=== PATIENT | female | born 1950 | race Caucasian/White ===

== ENCOUNTER 2024-07-06 14:14 | Emergency (ER) | payer MEDICARE, OTHER, SELFPAY ==
--- NOTE | ~2024-07-06 | CT_ITS ---
EXAMINATION: CT ABDOMEN AND PELVIS WITHOUT CONTRAST CLINICAL INFORMATION: Left flank pain, vomiting. COMPARISON: None available. TECHNIQUE: Multidetector volumetric imaging was performed from the superior aspect of the liver through the pubic symphysis. Sagittal and coronal reformatted images were obtained on the technologist's workstation. This CT examination was performed using dose optimization techniques as appropriate, variously including the following: *Automated exposure control *Adjustment of mA and/or kV according to patient size (this includes techniques or standardized protocols for targeted exams where dose is matched to indication/reason for exam; i.e. extremities or head) *Use of iterative reconstruction technique DLP: 735 mGy-cm FINDINGS: LUNG BASES: The visualized lung bases are unremarkable. LIVER, GALLBLADDER, AND BILIARY TREE: The liver is normal in size, shape, and attenuation. No focal hepatic lesion or biliary ductal dilatation is present. The gallbladder is unremarkable with no evidence of radiopaque gallstones, gallbladder wall thickening, or obvious pericholecystic inflammatory changes. PANCREAS: Unremarkable. SPLEEN: Unremarkable. ADRENAL GLANDS: Unremarkable. KIDNEYS AND URETERS: The kidneys are normal in size, shape, and attenuation. There is a nonobstructive 5 mm radiopaque calculi lower pole calyx left kidney. There is a 5 mm and a 7 mm obstructive radiopaque left distal ureter calculi with moderate hydroureteronephrosis. Intermingled with several phleboliths in the left pelvis as well. No previous exams in level for comparison. No radiopaque calculus in right kidney. There is no hydronephrosis. BLADDER: Unremarkable. GASTROINTESTINAL TRACT: There is scattered stool and gas seen in colon without distention. The small bowel loops are normal caliber. ABDOMINAL WALL: No significant hernia is appreciated. LYMPH NODES: Normal. VASCULAR: Unremarkable. PELVIC VISCERA: The uterus is anteverted and unremarkable. No free air or free fluid seen no adnexal mass. OSSEOUS STRUCTURES: Mild degenerative disc changes L2-3, L3-4 and L4-5 disc levels with vacuum disc phenomena. There is grade 1 anterolisthesis L3 over L4. No lytic or sclerotic process seen. CT/CT abdomen pelvis wo IV con IMPRESSION: 1. Obstructive radiopaque calculi distal left ureter with moderate hydroureteronephrosis. There is a nonobstructive radiopaque calculi lower pole calyx left kidney. 2. Mild constipation. Fleischner guidelines were followed. Electronically signed by: Paul Bey MD 07/06/2024 07:44 PM EDT RP
[2024-07-06 14:49] VITALS: BP 138/84; PULSE 100; RESP 16; TEMP 36.6; O2SAT 95; BMI 33.7
--- NOTE | 2024-07-06 14:50 | ED.ABDPAIN ---
HPI - Abdominal Pain General Chief Complaint: Abdominal Pain Stated Complaint: l side pain Time Seen by Provider: 07/06/24 18:22 Source: patient Mode of arrival: ambulatory Limitations: no limitations History of Present Illness ED Provider: cali QUICK narrative: Patient is 74 years old with family's of kidney stone but patient never had a kidney stone noticed sudden onset of pain left flank area about 4 days ago with intermittent pain during last 3 days earlier today in the a.m. patient has had severe pain with nausea no hematuria no urinary symptoms after arrival to the ER patient did not have any flank pain feeling much better at this time Related Data Previous Rx's ?Medication ?Instructions ?Recorded ondansetron 4 mg disintegrating 4 mg PO Q6-8H PRN nausea and 07/06/24 tablet vomiting #7 tabs oxycodone 5 mg tablet 5 mg PO Q6H PRN pain #20 tabs 07/06/24 tamsulosin 0.4 mg capsule (Flomax) 0.4 mg PO BEDTIME #7 caps 07/06/24 Allergies Allergy/AdvReac Type Severity Reaction Status Date / Time Sulfa (Sulfonamide Allergy Swelling Verified 07/06/24 14:52 Antibiotics) Review of Systems Review of Systems Yes all other systems are reviewed and are negative [facility] Social History Social History Smoked in Last 30 Days: No Use of substances other than those prescribed or required for medical reasons: No Advance Directives: No Advance Directives Information Provided: No Do you have a plan to hurt others: No Plan Physical Exam ED Vital Signs: Vital Signs - 24 hr 07/06/24 14:49 07/06/24 18:47 07/06/24 20:24 Temperature 97.9 F 98.2 F 99.0 F Pulse Rate 100 91 94 Respiratory Rate 16 17 18 Blood Pressure 138/84 170/69 H 148/81 H Pulse Oximetry 95 98 100 Oxygen Delivery Method Room Air Room Air Room Air BMI result Body Mass Index 33.7 Appearance: Alert. Oriented X3. No acute distress. Eyes: PERRLA, No Nystagmus ENT: Pharynx normal. Oral Mucosa moist Neck: Normal inspection. Neck supple. CVS: Normal heart rate and rhythm. Pulses normal. Respiratory: No respiratory distress. Equal air entry bilateral, no wheezing/rales/rhonchi Abdomen: Soft and nontender. Bowel sounds are present, no mass palpable, mild left CVA tenderness Skin: Skin warm and dry. Normal skin color. Normal skin turgor. Extremities: No lower extremity edema. No calf tenderness Neuro: Oriented X 3. Course Course Course Narrative: This is a Rapid Medical Examination (RME) performed by Froy Tsai PA-C in triage. Full HPI, ROS, assessment and treatment plan per primary provider in the Main ED. 74 y/o female with history of sciatica, HLD, hypothyroidism who presents to the ER from Urgent Care for evaluation of 2-3 days of left flank pain, 8/10 with vomiting, constipation. microscopic hematuria on UA at . Plan: Medical Decision Making Medical Decision Making [facility] Narrative: Patient with left ureteric colic CT scan showed moderate hydronephrosis with 5 and 7 mm left ureteric distal stone patient is pain-free on arrival no signs of infection kidney functions are normal case discussed with Dr. Ness urologist will see her in the a.m. Differential Diagnosis Differential Diagnoses: The differential diagnosis associated with the presentation includes UTI/pyelonephritis/renal colic/kidney stone Admission/Observation Consideration of admission/observation: Escalation of care including admission/observation considered Lab Data [facility] Lab Attestation statement: I reviewed the patient's lab results. 07/06/24 15:26 07/06/24 15:26 Labs: Lab Results 07/06/24 07/06/24 Range/Units 15:26 15:32 WBC 12.8 H (4.8-10.8) X10*3/uL RBC 4.25 (4.20-5.50) X10*6/uL Hgb 14.0 (12.0-16.0) g/dl Hct 40.7 (37.0-47.0) % MCV 95.8 (80.0-98.0) fL MCH 32.9 (27.0-33.0) pg MCHC 34.4 (31.0-35.0) g/dl RDW 13.4 (11.0-16.0) % Plt Count 240 (160-400) X10*3/uL MPV 8.8 L (9.4-12.3) fL Immature Gran % (Auto) 0.4 (0.0-0.4) % Neut % (Auto) 82.6 H (45-73) % Lymph % (Auto) 6.1 L (20-40) % [place] % (Auto) 10.4 (2-11) % Eos % (Auto) 0.1 (0-4) % Baso % (Auto) 0.4 (0-2) % Lymph # (Auto) 0.8 L (1.2-4.9) X10*3/uL [place] # (Auto) 1.3 H (0.1-1.2) X10*3/uL Eos # (Auto) 0.0 (0.0-0.4) X10*3/uL Baso # (Auto) 0.1 (0.0-0.2) X10*3/uL Abs Immat Gran (auto) 0.05 H (0.00-0.03) X10*3/uL Absolute Neuts (auto) 10.5 H (2.0-8.3) x10*3/uL Absolute Nucleated RBC 0.000 (0.0-0.012) X10*3/uL Nucleated RBC % (auto) 0.0 (0.0-0.2) /100WBC Sodium 140 (135-145) mmol/L Potassium 4.1 (3.3-5.1) mmol/L Chloride 106 (96-108) mmol/L Carbon Dioxide 22 (22-29) mmol/L Anion Gap 16 (12-20) BUN 19 H (9-16) mg/dL Creatinine 1.35 (0.5-1.4) mg/dL Estim Creat Clear Calc 37.4 Estimated GFR 38 Random Glucose 124 H (60-115) mg/dL Calcium 10.7 H (8.4-10.2) mg/dL Magnesium 2.3 (1.6-2.6) mg/dL Total Bilirubin 0.5 (0.0-1.0) mg/dL Direct Bilirubin 0.2 (0.0-0.5) mg/dL AST 18 (5-31) U/L ALT 16 (0-31) U/L Alkaline Phosphatase 78 (39-117) U/L Total Protein 8.0 (6.5-8.0) g/dL Albumin 4.6 (3.5-5.0) g/dL Lipase 46 (8-78) U/L Urine Color Yellow Urine Appearance Clear Urine pH 5.5 (5.0-9.0) Ur Specific [place] >= 1.030 H (1.005-1.025) Urine Protein 30 (1+) H (Neg-Trace) mg/dL Urine Glucose (UA) Negative (Negative) mg/dL Urine Ketones 80 (Negative) mg/dL Urine Blood Large (3+) H (Negative) Urine Nitrite Negative (Negative) Ur Leukocyte Esterase Trace H (Negative) Urine RBC >20 H (0-2) /HPF Urine WBC 11-20 H (0-5) /HPF Ur Squamous Epith Cells 3-5 (0-2) /HPF Urine Bacteria None Seen (None Seen) Hyaline Casts 0-2 (0-2) /LPF Independent Interpretation I performed an independent interpretation of an: CT Scan Radiology Impression Discussion of test interpretation with radiology: I have reviewed the radiologist's reading. Radiologist Impression: [place] [id number] CT Scan Report Signed Patient: Angela Fisher MR#: [id number] : 1950 Acct:[id number] Age/Sex: 74 / F ADM Date: 07/06/24 Loc: .ED Attending Dr: Ordering Physician: Gi Tsai Date of Service: 07/06/24 Procedure(s): CT abdomen pelvis wo IV con Accession Number(s): [id number] cc: Gi Tsai; Megha Miller MD~ EXAMINATION: CT ABDOMEN AND PELVIS WITHOUT CONTRAST CLINICAL INFORMATION: Left flank pain, vomiting. COMPARISON: None available. TECHNIQUE: Multidetector volumetric imaging was performed from the superior aspect of the liver through the pubic symphysis. Sagittal and coronal reformatted images were obtained on the technologist's workstation. This CT examination was performed using dose optimization techniques as appropriate, variously including the following: *Automated exposure control *Adjustment of mA and/or kV according to patient size (this includes techniques or standardized protocols for targeted exams where dose is matched to indication/reason for exam; i.e. extremities or head) *Use of iterative reconstruction technique DLP: 735 mGy-cm FINDINGS: LUNG BASES: The visualized lung bases are unremarkable. LIVER, GALLBLADDER, AND BILIARY TREE: The liver is normal in size, shape, and attenuation. No focal hepatic lesion or biliary ductal dilatation is present. The gallbladder is unremarkable with no evidence of radiopaque gallstones, gallbladder wall thickening, or obvious pericholecystic inflammatory changes. PANCREAS: Unremarkable. SPLEEN: Unremarkable. ADRENAL GLANDS: Unremarkable. KIDNEYS AND URETERS: The kidneys are normal in size, shape, and attenuation. There is a nonobstructive 5 mm radiopaque calculi lower pole calyx left kidney. There is a 5 mm and a 7 mm obstructive radiopaque left distal ureter calculi with moderate hydroureteronephrosis. Intermingled with several phleboliths in the left pelvis as well. No previous exams in level for comparison. No radiopaque calculus in right kidney. There is no hydronephrosis. BLADDER: Unremarkable. GASTROINTESTINAL TRACT: There is scattered stool and gas seen in colon without distention. The small bowel loops are normal caliber. ABDOMINAL WALL: No significant hernia is appreciated. LYMPH NODES: Normal. VASCULAR: Unremarkable. PELVIC VISCERA: The uterus is anteverted and unremarkable. No free air or free fluid seen no adnexal mass. OSSEOUS STRUCTURES: Mild degenerative disc changes L2-3, L3-4 and L4-5 disc levels with vacuum disc phenomena. There is grade 1 anterolisthesis L3 over L4. No lytic or sclerotic process seen. CT/CT abdomen pelvis wo IV con IMPRESSION: 1. Obstructive radiopaque calculi distal left ureter with moderate hydroureteronephrosis. There is a nonobstructive radiopaque calculi lower pole calyx left kidney. 2. Mild constipation. Fleischner guidelines were followed. Electronically signed by: Paul Bey MD 07/06/2024 07:44 PM EDT RP Medications Administered Discontinued Medications Generic Name Dose Route Start Last Admin Trade Name Freq PRN Reason Stop Dose Admin Tamsulosin HCl 0.4 mg 07/06/24 18:33 07/06/24 18:41 Tamsulosin Hcl 0.4 Mg Capsule PO 07/06/24 18:34 0.4 mg ONCE ONE Administration Discharge Plan Discharge Clinical Impression: Kidney calculi Patient Disposition: Home, Self-Care Instructions: Kidney Stones (ED) Additional Instructions: Drink plenty of fluids Take Flomax daily Call urologist in a.m. for further management Pain medication and nausea prescribed Report to ER or worsening of the pain Prescriptions: New tamsulosin [Flomax] 0.4 mg capsule 0.4 mg PO BEDTIME Qty: 7 0RF ondansetron 4 mg tablet,disintegrating 4 mg PO Q6-8H PRN (Reason: nausea and vomiting) Qty: 7 0RF oxycodone 5 mg tablet 5 mg PO Q6H PRN (Reason: pain) Qty: 20 0RF Rx Instructions: Partial Fill upon patient request. Referrals: Gallo Lorenzo MD [Physician] - 1 day (Left renal colic) Interventions: ED Discharge Assessment Last Done: 07/06/24 20:24 Discharge Date/Time: 07/06/24 20:26 Print Language: Armenian
[2024-07-06 15:30] LABS: MANUAL DIFF FLAG NO
[2024-07-06 15:31] LABS: Basophils Absolute Auto 0.1 X10*3/uL (0.0-0.2); Basophils Percent Auto 0.4 % (0-2); Eosinophils Percent Auto 0.1 % (0-4); Hematocrit 40.7 % (37.0-47.0); Imm Gran Abs Auto 0.05 X10*3/uL (0.00-0.03); Imm Gran Pct Auto 0.4 % (0.0-0.4); Lymphocytes Absolute Auto 0.8 X10*3/uL (1.2-4.9); Lymphocytes Percent Auto 6.1 % (20-40); Mean Corpuscular HGB Conc 34.4 g/dl (31.0-35.0); Mean Corpuscular Hemoglobin 32.9 pg (27.0-33.0); Mean Corpuscular Volume 95.8 fL (80.0-98.0); Mean Platelet Volume 8.8 fL (9.4-12.3); Monocytes Absolute Auto 1.3 X10*3/uL (0.1-1.2); Monocytes Percent Auto 10.4 % (2-11); Neutrophils Absolute Auto 10.5 x10*3/uL (2.0-8.3); Neutrophils Percent Auto 82.6 % (45-73); Platelet Count 240 X10*3/uL (160-400); Red Blood Count 4.25 X10*6/uL (4.20-5.50); Red Cell Distribution Width 13.4 % (11.0-16.0); White Blood Count 12.8 X10*3/uL (4.8-10.8)
[2024-07-06 15:48] LABS: Alanine Aminotransferase 16 U/L (0-31); Albumin Level 4.6 g/dL (3.5-5.0); Alkaline Phosphatase 78 U/L (39-117); Anion Gap 16 (12-20); Aspartate Amino Transferase 18 U/L (5-31); Bilirubin Direct 0.2 mg/dL (0.0-0.5); Bilirubin Total 0.5 mg/dL (0.0-1.0); Blood Urea Nitrogen 19 mg/dL (9-16); Calcium 10.7 mg/dL (8.4-10.2); Carbon Dioxide 22 mmol/L (22-29); Chloride 106 mmol/L (96-108); Creatinine Clr Calc Pharmacy 37.4; Estimated Glomerular Filt Rate 38; Glucose Random 124 mg/dL (60-115); Lipase 46 U/L (8-78); Magnesium 2.3 mg/dL (1.6-2.6); Potassium 4.1 mmol/L (3.3-5.1); Sodium 140 mmol/L (135-145)
[2024-07-06 15:59] LABS: Appearance Urine Clear; Color Urine Yellow; Glucose Urine UA Negative (Negative); Leukocyte Esterase Urine Trace (Negative); Nitrite Urine Negative (Negative); PH 5.5 (5.0-9.0); Specific Gravity - Urine >= 1.030 (1.005-1.025); UMIC TRIGGER UACC YES; Urine Blood Large (3+) (Negative); Urine Ketones 80 mg/dL (Negative); Urine Protein 30 (1+) mg/dL (Neg-Trace)
[2024-07-06 16:05] LABS: Bacteria Urine None Seen (None Seen); Hyaline Casts Urine 0-2 /LPF (0-2); RBC Urine >20 /HPF (0-2); UACC Culture Trigger YES
--- NOTE | 2024-07-06 18:35 | PC.NURSE ---
patient arrives through external triage ambulatory with steady gait complaining of left sided flank pain a few days ago that has since subsided. patient not currently complaining of any pain or difficulty urinating, denies frequent urination, states the pain stopped but she felt like she should be seen for it. patient also states she has not had a bowel movement in 3 days. abdomen is soft nontender to palpation, patient denies fevers chills or diarrhea, denies sick contacts. josé miguel provided urine sample and blood work in triage, no PIV at this time. MD at bedside to assess
[2024-07-06] MEDS: Tamsulosin HCL 0.4 MG CAPSULE PO (18:41)
[2024-07-06 18:47] VITALS: BP 170/69; PULSE 91; RESP 17; TEMP 36.8; O2SAT 98
--- NOTE | 2024-07-06 19:08 | PC.NURSE ---
report received from Dianna Sumner RN, assume care of pt at this time
--- NOTE | 2024-07-06 19:16 | PC.NURSE ---
pt and family member updated given, waiting on repeat lactace, no s/s of acute distress, will cont plan of care
[2024-07-06 20:24] VITALS: BP 148/81; PULSE 94; RESP 18; TEMP 37.2; O2SAT 100
== END 2024-07-06 20:26 | disposition home or self-care (01) ==
PROVIDERS: Physician Assistant; Emergency Provider Internal Medicine; PCP Internal Medicine
DX: N20.0 Calculus of kidney (principal); R10.2 Pelvic and perineal pain; R11.2 Nausea with vomiting, unspecified; Z79.899 Other long term (current) drug therapy
CPT/HCPCS: 36415; 74176; 80048; 80076; 81001; 83690; 83735; 85025; 87086; 99284

== ENCOUNTER 2024-07-07 14:04 | Outpatient (AMB) | payer MEDICARE, OTHER, SELFPAY ==
--- NOTE | 2024-07-07 14:04 | A.OFFVIS_ITS ---
Intake Visit Reasons: ER follow up Allergies Sulfa (Sulfonamide Antibiotics) Allergy (Verified 07/06/24 14:52) Swelling Medication List - Last Reconciled 07/07/24 by Eda Marks MD ketorolac 10 mg PO Q12H PRN 1 day ondansetron 4 mg PO Q6-8H PRN oxycodone 5 mg PO Q6H PRN prednisone 20 mg PO DAILY 3 days tamsulosin (Flomax) 0.4 mg PO BEDTIME HPI Comments Details: Angela was seen in the emergency room on 07/06/2024 due to left-sided pain. CTAP noted 7 mm distal ureteral stone on the left with hydronephrosis. Also left renal stone lower pole. Right kidney no stones. Discussed treatment options to include ureteroscopy laser lithotripsy. Review of Systems Const All systems reviewed & are unremarkable except as noted in HPI and below Reports no additional complaints Eyes Reports no additional complaints ENT Reports no additional complaints Card Reports no additional complaints Resp Reports no additional complaints GI Reports no additional complaints Reports as per HPI Musc Reports no additional complaints Skin/Breast Reports system reviewed and no additional complaints, except as documented Neuro Reports no additional complaints Psych Reports no additional complaints Endo Reports no additional complaints [place]/Lymph Reports no additional complaints Aller/Immun Reports no additional complaints Physical Exam Const General: cooperative, healthy appearing and no acute distress Orientation/consciousness: patient oriented x3 HEENT Head: Yes normal to inspection, Yes normocephalic and Yes atraumatic Eyes Conjunctivae: conjunctivae normal Neck Neck: Yes normal visual inspection and Yes trachea midline Chest Chest palpation & inspection: normal inspection of the chest Resp Effort & Inspection: normal respiratory effort Skin General skin exam: no rashes or lesions noted Neuro General: patient oriented x3 Psych Appearance: grossly normal Telehealth Telehealth Telehealth Platform: [facility] Location of provider rendering services: practice address Location of patient: address on file Patient Identification confirmed using: Name, : Yes Telehealth method: video Patient verbally consented to treatment: Yes Patient verbally consented to billing insurance company: Yes Patient informed of any privacy concerns related to visit: Yes Results Reviewed Results Reviewed: Date of Service: 07/06/24 CT ABDOMEN AND PELVIS WITHOUT CONTRAST CLINICAL INFORMATION: Left flank pain, vomiting. COMPARISON: None available. TECHNIQUE: Multidetector volumetric imaging was performed from the superior aspect of the liver through the pubic symphysis. Sagittal and coronal reformatted images were obtained on the technologist's workstation. This CT examination was performed using dose optimization techniques as appropriate, variously including the following: *Automated exposure control *Adjustment of mA and/or kV according to patient size (this includes techniques or standardized protocols for targeted exams where dose is matched to indication/reason for exam; i.e. extremities or head) *Use of iterative reconstruction technique DLP: 735 mGy-cm FINDINGS: LUNG BASES: The visualized lung bases are unremarkable. LIVER, GALLBLADDER, AND BILIARY TREE: The liver is normal in size, shape, and attenuation. No focal hepatic lesion or biliary ductal dilatation is present. The gallbladder is unremarkable with no evidence of radiopaque gallstones, gallbladder wall thickening, or obvious pericholecystic inflammatory changes. PANCREAS: Unremarkable. SPLEEN: Unremarkable. ADRENAL GLANDS: Unremarkable. KIDNEYS AND URETERS: The kidneys are normal in size, shape, and attenuation. There is a nonobstructive 5 mm radiopaque calculi lower pole calyx left kidney. There is a 5 mm and a 7 mm obstructive radiopaque left distal ureter calculi with moderate hydroureteronephrosis. Intermingled with several phleboliths in the left pelvis as well. No previous exams in level for comparison. No radiopaque calculus in right kidney. There is no hydronephrosis. BLADDER: Unremarkable. GASTROINTESTINAL TRACT: There is scattered stool and gas seen in colon without distention. The small bowel loops are normal caliber. ABDOMINAL WALL: No significant hernia is appreciated. LYMPH NODES: Normal. VASCULAR: Unremarkable. PELVIC VISCERA: The uterus is anteverted and unremarkable. No free air or free fluid seen no adnexal mass. OSSEOUS STRUCTURES: Mild degenerative disc changes L2-3, L3-4 and L4-5 disc levels with vacuum disc phenomena. There is grade 1 anterolisthesis L3 over L4. No lytic or sclerotic process seen. IMPRESSION: 1. Obstructive radiopaque calculi distal left ureter with moderate hydroureteronephrosis. There is a nonobstructive radiopaque calculi lower pole calyx left kidney. 2. Mild constipation. Assessment & Plan Assessment & Plan (1) Hydronephrosis, left: Code(s): N13.30 - Unspecified hydronephrosis Category: Medical (2) Left ureteral stone: Code(s): N20.1 - Calculus of ureter Category: Medical (3) Kidney stone on left side: Code(s): N20.0 - Calculus of kidney Category: Medical Plan Cystoscopy Left ureteroscopy laser lithotripsy left ureteral stent Medications: New prednisone 20 mg PO DAILY 3 days 3 tabs 0RF ketorolac take with food 10 mg PO Q12H 1 day PRN 10 tabs 0RF pain Patient Instructions: The patient had an opportunity to ask questions regarding treatment plan. The patient expressed understanding and agreement with the above treatment plan. The patient is aware they should contact our office by phone for worsening of their current condition or the appearance of new symptoms. Compliance is encouraged with any medications and followup testing that is ordered. It is a privilege to be allowed the opportunity to participate in the urologic care of your patient. If you have any questions or concerns regarding treatment for the above conditions please do not hesitate to contact me. The office telephone contact is [phone]. This note is constructed in part using voice recognition software. While every effort has been made to ensure accuracy diagnostic technician errors may have been included. Yours sincerely, Eda Marks MD Coding Level of Care Code Tele New Pt Level 4 (31515) Diagnoses Hydronephrosis, left N13.30 Left ureteral stone N20.1 Kidney stone on left side N20.0
== END 2024-07-07 14:58 | disposition home or self-care (01) ==
LOC: HO.HUSH 14:04
PROVIDERS: PCP Internal Medicine; Visit Provider Urology
DX: N13.30 Unspecified hydronephrosis (principal); N20.2 Calculus of kidney with calculus of ureter
CPT/HCPCS: 99204

== ENCOUNTER → 2024-07-07 14:04 | Outpatient (BNVA) | payer MEDICARE, OTHER, SELFPAY | PROVIDERS: PCP Internal Medicine; Visit Provider Urology ==

== ENCOUNTER 2024-07-11 08:25 | Day surgery (SDC) | payer MEDICARE, OTHER, SELFPAY ==
[2024-07-11] VITALS (7 sets, daily range): BP systolic 92–142; BP diastolic 45–75; PULSE 60–93; RESP 12–18; TEMP 35.9–36.1; O2SAT 95–98; BMI 32.8
--- NOTE | 2024-07-11 09:10 | HO.ANESPROP2 ---
Documented by User: Sparkle Roland NP 07/10/24 09:45 HPI - Anesthesia Eval Consult details Narrative: 74yo F for Left Cystoscopy, Ureteroroscopy, Retro, Laser with stent placement PMFSH Active Problems Active Problems: All Active Problems Kidney stone on left side (Acute) Left ureteral stone (Acute) Hydronephrosis, left (Acute) Social History Social History Advance Directives: No Advance Directives Information Provided: Yes Meds Allergies Allergy/AdvReac Type Severity Reaction Status Date / Time Sulfa (Sulfonamide Allergy Swelling Verified 07/06/24 14:52 Antibiotics) Exam Pertinent Lab Results Pertinent Lab Results: Laboratory Tests 07/06/24 15:26 WBC 12.8 H Hgb 14.0 Hct 40.7 Plt Count 240 Sodium 140 Potassium 4.1 Chloride 106 Carbon Dioxide 22 BUN 19 H Creatinine 1.35 Assessment and Plan Assessment Anesthesia Assessment: Chart Reviewed Documented by User: Dorie Wallis DO 07/11/24 09:17 PMFSH Family History Family history of problems with anesthesia: No Surgical History History of Problems with Anesthesia: No Social History Social History Advance Directives: No Advance Directives Information Provided: Yes Meds Allergies Allergy/AdvReac Type Severity Reaction Status Date / Time Sulfa (Sulfonamide Allergy Swelling Verified 07/06/24 14:52 Antibiotics) Exam Exam Date and Time: 07/11/24 0910 Airway Mallampati Class: II TM Dist: >3cm Neck ROM: Full Loose/Missing/Broken Teeth: No (patient denies any loose or broken teeth) Heart: S1S2 Lungs: CTAB Assessment and Plan Assessment Anesthesia Assessment: Anesthesia Plan Discussed and Chart Reviewed Final Anesthetic Review Family History of Problems with Anesthesia: No History of Problems with Anesthesia: No NPO: Yes ASA Class: II Final Preanesthetic Review: No Changes in Pt Med Stat, Meds/Allgs Chart Reviewed, Consent Obtained/Reviewed and Anes Risks/Benef Reviewed Patient Risk: Low Procedure Risk: Low Anesthetic Plan Anesthetic Plan: GA and Agree w/ Assess. and Plan Disposition: Standard PACU
--- NOTE | 2024-07-11 09:17 | MHC.SHP ---
Pre-Procedural Eval Section A - 24 Hr Update-Section A only Date of Service: 07/11/24 The patient is an INPATIENT: No The patient has been examined within 24 hours of the surgical procedure. The History & Physical has been completed within 30 days and I have reviewed it.: Yes Section B - Complete if H&P > 30 days Chief Complaint: hydronephrosis, ureteral stone Allergies: Allergies Allergy/AdvReac Type Severity Reaction Status Date / Time Sulfa (Sulfonamide Allergy Swelling Verified 07/06/24 14:52 Antibiotics) Plan Diagnosis/Plan: Unchanged I have reviewed the history and physical and performed a pertinent physical examination on my patient. No changes have occurred unless specified. Plan for Cystoscopy, [] ureteroscopy, possible laser lithotripsy, possible ureteral stent. Risks discussed included but not limited to, possible need to repeat procedure if stone is not completely fragmented, Irritative voiding symptoms, bladder spasms, urgency, blood in urine. Time Spent With Patient Time: Total time managing care of this patient today ____ minutes.
[2024-07-11] MEDS: Lactated Ringers 1,000 ML 100 ML IVCONT (09:21)
--- NOTE | 2024-07-11 10:17 | W.PM.OPN ---
Operative Note Operative Note Date of Service: 07/11/24 Narrative: PreOperative Diagnosis:??Left ureteral stone left hydronephrosis Post Operative Diagnosis:?? Left ureteral stone left hydronephrosis Procedure: - Cystoscopy, left retrograde, left ureteroscopy laser lithotripsy stent insertion, 7 Australian by 24 cm Surgeon:?Dr Eda Marks Anesthesia:? General Procedure: After informed consent was verified the patient was brought to the operating placed on the OR table in supine position.? General Anesthesia was administered per protocol.? The patient was placed in lithotomy position, prepped and draped in the usual sterile fashion.? Safety pause time-out and side of surgery confirmed.? Antibiotics confirmed. 2% lidocaine jelly 10 mL was passed transurethrally. A 22 Australian cystoscope was inserted transurethrally. The bladder was visualized.? Both ureteric orifices were in normal position. An open-ended ureteral catheter was passed into the left ureteral orifice and a retrograde examination was performed. There was a filling defect in the distal ureter and dilatation proximally. A guidewire was passed through the ureteral catheter into the kidney. The balloon dilator size 12 fr x 4 cm was passed over the guide-wire the balloon was inflated to 10 mmHg and the intramural ureter was dilated for 30 seconds. The balloon was deflated and removed. After removing the balloon dilator the cystoscope was removed, leaving the guidewire in place which was attached to the draping to use as a safety. The semi rigid ureteroscope was passed transurethrally to the level of the stone in the distal ureter. Laser lithotripsy of the stone was done using the 365 fiber with a alternating pulsating and dusting setting. There was good fragmentation of the stone. The 0 degree basket was passed through the ureteroscope, stone fragment(s) removed and sent for analysis. The ureteroscope was removed. The cystoscope was passed over the safety guidewire. A? 7 Australian by 24 cm stent was placed into the ureter and renal pelvis under a combination of fluoroscopy and direct visualization. The bladder was emptied.? The rigid cystoscope was removed. ? The patient tolerated the procedure well and was brought to the recovery room in stable condition. Complications: None Drains: Ureteral stent as dictated above
[2024-07-11] MEDS: Acetaminophen 325 MG TABLET 650 MG PO (10:34)
[2024-07-15 21:32] LABS: Stone Source LEFT URETERAL STONE
== END 2024-07-11 11:13 | disposition home or self-care (01) ==
PROVIDERS: PCP Internal Medicine; Visit Provider Urology
PROC: (CPT 52356; principal; 2024-07-11 10:10)
DX: N13.2 Hydronephrosis with renal and ureteral calculous obstruction (principal); Z79.899 Other long term (current) drug therapy; Z88.2 Allergy status to sulfonamides
CPT/HCPCS: 52356; 82365; 88300; C1726; C1758; C1769; C2617; J0690; J2003; J2704; J3010; Q9967

== ENCOUNTER → 2024-07-11 08:25 | Outpatient (BNV) | payer MEDICARE, OTHER, SELFPAY | PROVIDERS: PCP Internal Medicine; Visit Provider Urology | DX: N13.30 Unspecified hydronephrosis (principal) | CPT/HCPCS: 52356; 74420 ==

== ENCOUNTER 2024-07-31 08:37 | Outpatient (AMB) | payer MEDICARE, OTHER, SELFPAY ==
--- NOTE | 2024-07-30 20:27 | A.OFFVIS_ITS ---
Intake Visit Reasons: Stent removal Intake Note: Patient is present for STENT REMOVAL Urology Medication:NONE Antibiotic Allergy:SULFA Blood Thinner:NONE Marine Cargo Inspector Required: No Allergies Sulfa (Sulfonamide Antibiotics) Allergy (Verified 07/31/24 09:12) Swelling HPI Comments Details: 07/31/24--here for stent removal. s/p left ureteroscopy laser lithotripsy s/p left ureteral stent on 07/11/24. I have discussed further stone management with left ESWL.Discussed risks to include but not limited to, blood in the urine, bruising to the skin, kidney hematoma, possible need for another procedure if a stone fragment obstructs the ureter while passing, possible need to repeat procedure if stone is not completely fragmented. Discussed diet management to include low oxalate diet and increasing fluid hydration. Plan for 24 hour urine collection, left ESWL. Left ureteral stent removed without difficulty. Review of chart: 07/07/24--Angela was seen in the emergency room on 07/06/2024 due to left-sided pain. CTAP noted 7 mm distal ureteral stone on the left with hydronephrosis. Also left renal stone lower pole. Right kidney no stones. Discussed treatment options to include ureteroscopy laser lithotripsy. [facility] Social History Are you a primary pet care attendant to a significant other at home: No Do you presently have visiting nurse or other home services: No Patient Tobacco Use Status: Never used Tobacco Review of Systems Const All systems reviewed & are unremarkable except as noted in HPI and below Reports no additional complaints Eyes Reports no additional complaints ENT Reports no additional complaints Card Reports no additional complaints Resp Reports no additional complaints GI Reports no additional complaints Reports as per HPI Musc Reports no additional complaints Skin/Breast Reports system reviewed and no additional complaints, except as documented Neuro Reports no additional complaints Psych Reports no additional complaints Endo Reports no additional complaints [place]/Lymph Reports no additional complaints Aller/Immun Reports no additional complaints Office Procedures Cystoscopy Consent Discussed risk and benefit or proposed procedure with the patient. Information consent for procedure given to the patient. Discussed technical aspects, risks, benefits and alternatives in full. Addressed all of the patient's questions and concerns regarding the procedure. The patient demonstrated knowledge and understanding. They wish to proceed with this procedure. Preparation The patient was prepped in the usual manner. A employment appeals examiner was present and in the room. Genitalia was prepped with betadine solution in a sterile manner. Lidocaine Jelly 2% was placed into the urethra and 16Fr flexible Olympus cystoscope was inserted into the meatus after adequate lubrication. Procedure Time out per protocol performed. Bladder Inspection Cystoscopy findings: mild edema ureteral orifice which is expected, distal end of ureteral stent visualized. The grasping forceps were used and the stent was removed without difficulty. [id number] with stent removal DISPOSABLE SCOPE URO-G FLEXIBLE SCOPE Procedure code (CPT) selection complete Office Meds lidocaine HCl 2 % mucosal jelly in applicator Performing Provider: Eda Marks MD Performing Location: [facility] [facility] Documented (not given) by: Eda Marks MD on 07/31/24 09:59 Dose Route Admin Location Dispensed Lot Number Expiration Date NDC Hearing Therapy Teacher 10 mL intra-urethral mL naproxen 500 mg tablet Performing Provider: Eda Marks MD Performing Location: [facility] [place] [facility] Documented (not given) by: Eda Marks MD on 07/31/24 09:59 Dose Route Admin Location Dispensed Lot Number Expiration Date NDC Hearing Therapy Teacher 500 mg PO tab ciprofloxacin HCl 500 mg tablet Performing Provider: Eda Marks MD Performing Location: [facility] [place] [facility] Documented (not given) by: Eda Marks MD on 07/31/24 09:59 Dose Route Admin Location Dispensed Lot Number Expiration Date NDC Hearing Therapy Teacher 500 mg PO tab Results AMB Urinalysis, Automated UA Leukoctes 500 Quynh/uL Last Edit by LENCHO Guzmán on 07/31/24 09:39 UA Nitrite Positive Last Edit by LENCHO Guzmán on 07/31/24 09:39 UA Urobilinogen 4 mg/dL Last Edit by LENCHO Guzmán on 07/31/24 09:39 UA Protein 300 mg/dL Last Edit by LENCHO Guzmán on 07/31/24 09:39 UA pH 5.0 Last Edit by LENCHO Guzmán on 07/31/24 09:39 UA Blood 200 Gary/uL Last Edit by LENCHO Guzmán on 07/31/24 09:39 UA Specific [place] 1.020 Last Edit by LENCHO Guzmán on 07/31/24 09: 39 UA Ketone Positive Last Edit by LENCHO Guzmán on 07/31/24 09:39 UA Bilirubin 2 mg/dL Last Edit by LENCHO Guzmán on 07/31/24 09:39 UA Glucose 0 mg/dL Last Edit by LENCHO Guzmán on 07/31/24 09:39 Results Reviewed Results Reviewed: Laboratory Last Values Urine pH (Auto) 5.0 07/31/24 09:39 Specific [place] (Auto) 1.020 07/31/24 09:39 Urine Protein (Auto) 300 mg/dL 07/31/24 09:39 Glucose (UA)(Auto) 0 mg/dL 07/31/24 09:39 Urine Ketones (Auto) Positive 07/31/24 09:39 Urine Blood (Auto) 200 Gary/uL 07/31/24 09:39 Urine Nitrite (Auto) Positive 07/31/24 09:39 Urine Bilirubin (Auto) 2 mg/dL 07/31/24 09:39 Urine Urobilinogen (Auto) 4 mg/dL 07/31/24 09:39 Leukocyte Esterase (Auto) 500 Quynh/uL 07/31/24 09:39 Date of Service: 07/06/24 CT ABDOMEN AND PELVIS WITHOUT CONTRAST CLINICAL INFORMATION: Left flank pain, vomiting. COMPARISON: None available. TECHNIQUE: Multidetector volumetric imaging was performed from the superior aspect of the liver through the pubic symphysis. Sagittal and coronal reformatted images were obtained on the technologist's workstation. This CT examination was performed using dose optimization techniques as appropriate, variously including the following: *Automated exposure control *Adjustment of mA and/or kV according to patient size (this includes techniques or standardized protocols for targeted exams where dose is matched to indication/reason for exam; i.e. extremities or head) *Use of iterative reconstruction technique DLP: 735 mGy-cm FINDINGS: LUNG BASES: The visualized lung bases are unremarkable. LIVER, GALLBLADDER, AND BILIARY TREE: The liver is normal in size, shape, and attenuation. No focal hepatic lesion or biliary ductal dilatation is present. The gallbladder is unremarkable with no evidence of radiopaque gallstones, gallbladder wall thickening, or obvious pericholecystic inflammatory changes. PANCREAS: Unremarkable. SPLEEN: Unremarkable. ADRENAL GLANDS: Unremarkable. KIDNEYS AND URETERS: The kidneys are normal in size, shape, and attenuation. There is a nonobstructive 5 mm radiopaque calculi lower pole calyx left kidney. There is a 5 mm and a 7 mm obstructive radiopaque left distal ureter calculi with moderate hydroureteronephrosis. Intermingled with several phleboliths in the left pelvis as well. No previous exams in level for comparison. No radiopaque calculus in right kidney. There is no hydronephrosis. BLADDER: Unremarkable. GASTROINTESTINAL TRACT: There is scattered stool and gas seen in colon without distention. The small bowel loops are normal caliber. ABDOMINAL WALL: No significant hernia is appreciated. LYMPH NODES: Normal. VASCULAR: Unremarkable. PELVIC VISCERA: The uterus is anteverted and unremarkable. No free air or free fluid seen no adnexal mass. OSSEOUS STRUCTURES: Mild degenerative disc changes L2-3, L3-4 and L4-5 disc levels with vacuum disc phenomena. There is grade 1 anterolisthesis L3 over L4. No lytic or sclerotic process seen. IMPRESSION: 1. Obstructive radiopaque calculi distal left ureter with moderate hydroureteronephrosis. There is a nonobstructive radiopaque calculi lower pole calyx left kidney. 2. Mild constipation. Assessment & Plan Assessment & Plan (1) Hydronephrosis, left: Code(s): N13.30 - Unspecified hydronephrosis Category: Medical (2) Left ureteral stone: Comment: s/p left ureteroscopy laser lithotripsy s/p left ureteral stent on 07/11/24. Code(s): N20.1 - Calculus of ureter Category: Medical (3) Kidney stone on left side: Code(s): N20.0 - Calculus of kidney Category: Medical Plan Cystoscopy stent removed without difficulty Discussed diet management to include low oxalate diet and increasing fluid hydration. Plan for 24 hour urine collection, left ESWL. Orders: Orders AMB Urinalysis Automated 07/31/24 Z13.9 - Encounter for screening, unspecified AMB Cystoscopy 07/31/24 N20.0 - Calculus of kidney Medications: New ciprofloxacin HCl 500 mg PO ONCE 1 tab 0RF N20.0 - Calculus of kidney lidocaine HCl 2% 10 mL intra-urethral ONCE 10 mL 0RF N20.0 - Calculus of kidney naproxen 500 mg PO ONCE 1 tab 0RF N20.0 - Calculus of kidney Patient Instructions: The patient had an opportunity to ask questions regarding treatment plan. The patient expressed understanding and agreement with the above treatment plan. The patient is aware they should contact our office by phone for worsening of their current condition or the appearance of new symptoms. Compliance is encouraged with any medications and followup testing that is ordered. It is a privilege to be allowed the opportunity to participate in the urologic care of your patient. If you have any questions or concerns regarding treatment for the above conditions please do not hesitate to contact me. The office telephone contact is [phone]. This note is constructed in part using voice recognition software. While every effort has been made to ensure accuracy legal activity adjudicator errors may have been included. Yours sincerely, Eda Marks MD Coding Level of Care Code Est Pt Level 3 (45289) Diagnoses Hydronephrosis, left N13.30 Left ureteral stone N20.1 Kidney stone on left side N20.0 CPT Codes Cystoscopy - CPT: 67874-[id number] with stent removal ([id number])
== END 2024-07-31 10:42 | disposition home or self-care (01) ==
PROVIDERS: PCP Internal Medicine; Visit Provider Urology
DX: N20.1 Calculus of ureter (principal); Z96.0 Presence of urogenital implants
CPT/HCPCS: 52310; 99213

== ENCOUNTER → 2024-07-31 08:37 | Outpatient (BNVA) | payer MEDICARE, OTHER, SELFPAY | PROVIDERS: PCP Internal Medicine; Visit Provider Urology | DX: N13.30 Unspecified hydronephrosis (principal); N20.1 Calculus of ureter; N20.0 Calculus of kidney; Z46.6 Encounter for fitting and adjustment of urinary device | CPT/HCPCS: 52310; 81003; 99212 ==

== ENCOUNTER 2024-10-04 05:53 | Day surgery (SDC) | payer MEDICARE, OTHER, SELFPAY ==
--- NOTE | 2024-10-03 10:25 | P.CONAN_ITS ---
Documented by User: Sparkle Roland NP 10/03/24 10:25 HPI - Anesthesia Eval Consult details Narrative: 74yo F for Left ESWL s/p cysto etc 06/2024 with GA-LMA 3 PMFSH Active Problems Active Problems: All Active Problems Kidney stone on left side (Acute) Left ureteral stone (Acute) Hydronephrosis, left (Acute) Family History Family history of problems with anesthesia: No Surgical History Surgical History (Updated 10/04/24 @ 06:16 by Fany Crooks RN) H/O lithotripsy History of tubal ligation History of Problems with Anesthesia: No Social History Social History Are you a primary healthcare network consultant to a significant other at home: No Do you presently have visiting nurse or other home services: No Patient Tobacco Use Status: Never used Tobacco Use of substances other than those prescribed or required for medical reasons: No Have you been hit, kicked, punched, or otherwise hurt by someone within the past year? If so, by whom?: No Are you DNR?: No Advance Directives: No Advance Directives Information Provided: Yes Recently lost weight without trying: No Nutrition Risks: No Nutritional Risk Patient : No Meds Allergies Allergy/AdvReac Type Severity Reaction Status Date / Time Sulfa (Sulfonamide Allergy Swelling Verified 10/04/24 06:16 Antibiotics) Home Medications ?Medication ?Instructions ?Recorded ?Confirmed ?Last Taken ?Type levothyroxine 50 mcg capsule 50 mcg PO DAILY 07/31/24 10/04/24 10/04/24 History simvastatin 20 mg tablet 20 mg PO DAILY 07/31/24 10/04/24 Unknown History Assessment and Plan Assessment Anesthesia Assessment: Chart Reviewed Final Anesthetic Review Family History of Problems with Anesthesia: No History of Problems with Anesthesia: No Documented by User: Jared Drummond MD 10/04/24 07:25 PMFSH Surgical History Surgical History (Updated 10/04/24 @ 06:16 by Fany Crooks RN) H/O lithotripsy History of tubal ligation Social History Social History Are you a primary healthcare network consultant to a significant other at home: No Do you presently have visiting nurse or other home services: No Patient Tobacco Use Status: Never used Tobacco Use of substances other than those prescribed or required for medical reasons: No Have you been hit, kicked, punched, or otherwise hurt by someone within the past year? If so, by whom?: No Are you DNR?: No Advance Directives: No Advance Directives Information Provided: Yes Recently lost weight without trying: No Nutrition Risks: No Nutritional Risk Patient : No Meds Allergies Allergy/AdvReac Type Severity Reaction Status Date / Time Sulfa (Sulfonamide Allergy Swelling Verified 10/04/24 06:16 Antibiotics) Home Medications ?Medication ?Instructions ?Recorded ?Confirmed ?Last Taken ?Type levothyroxine 50 mcg capsule 50 mcg PO DAILY 07/31/24 10/04/24 10/04/24 History simvastatin 20 mg tablet 20 mg PO DAILY 07/31/24 10/04/24 Unknown History Exam Airway Mallampati Class: III TM Dist: >3cm Neck ROM: Full Assessment and Plan Assessment Anesthesia Assessment: Anesthesia Plan Discussed Final Anesthetic Review NPO: Yes ASA Class: II Final Preanesthetic Review: No Changes in Pt Med Stat, Meds/Allgs Chart Reviewed, Consent Obtained/Reviewed, Anes Risks/Benef Reviewed and DNR Form (If Appl.) Patient Risk: Low Procedure Risk: Low Anesthetic Plan Anesthetic Plan: GA Disposition: Standard PACU
--- NOTE | ~2024-10-04 | XR_ITS ---
CLINICAL HISTORY: left stone 1 view abdomen Comparison: None Findings: No pneumoperitoneum or pneumatosis. 4 mm stone overlies the lower pole of the left kidney. No acute fractures. IMPRESSION: 4 mm stone overlies the left kidney. This document has been electronically signed by: Claire Yates MD on 10/04/2024 06:14:41
[2024-10-04 06:19] VITALS: BMI 33.1
[2024-10-04 06:41] VITALS: BP 122/67; PULSE 78; RESP 14; TEMP 36.9; O2SAT 98
[2024-10-04] MEDS: Lactated Ringers 1,000 ML 100 ML IVCONT (06:59)
--- NOTE | 2024-10-04 07:50 | MHC.SHP ---
Pre-Procedural Eval Section A - 24 Hr Update-Section A only Date of Service: 10/04/24 The patient is an INPATIENT: No Changes since office visit: No Cold of Flu in the past 2 weeks, No New Medical Problems, No Changes in Medication and No Patient answered all questions The patient has been examined within 24 hours of the surgical procedure. The History & Physical has been completed within 30 days and I have reviewed it.: Yes Section B - Complete if H&P > 30 days Chief Complaint: Calculus of kidney Details of Present Illness: left eswl Relevant Social History: None Present Medications: None Medical History: No relevant PMH History of Previous Operations: Relevant previous surgery/procedure and date(s) Allergies: Allergies Allergy/AdvReac Type Severity Reaction Status Date / Time Sulfa (Sulfonamide Allergy Swelling Verified 10/04/24 06:16 Antibiotics) Review of Systems Sugical H&P ROS: Negative: Constitution, Cardiovascular, Respiratory, Neurological, Psychiatric, Hem-Onc, Allergic/Immunologic, Gastrointestinal, Genitourinary, Musculoskeletal, Integumentary, Endocrine and Eyes/Ears/Nose/Throat Exam Surgical H&P Exam: Normal: HEENT, Normal: Heart, Normal: Lungs, Normal: Extremities, Normal: Abdomen, Normal: Skin and Normal: Neurological Plan Diagnosis/Plan: Unchanged (left eswl) I have reviewed the history and physical and performed a pertinent physical examination on my patient. No changes have occurred unless specified. Time Spent With Patient Time: Total time managing care of this patient today ____ minutes.
[2024-10-04 08:32] VITALS: BP 136/48; PULSE 76; RESP 18; TEMP 36.1; O2SAT 98
--- NOTE | 2024-10-04 08:34 | W.PM.OPN ---
Operative Note Operative Note Date of Service: 10/04/24 Narrative: PreOperative Diagnosis: left Renal stones Post Operative Diagnosis: left Renal stones Procedure: left ESWL Surgeon: Dr Gallo Lorenzo Anesthesia: mac/sedation Indications for procedure: The patient understands ESWL may be a staged procedure and subsequent intervention may be required based on imaging after ESWL. Quoted stone clearance rates for a solitary procedure are in the 70-80% range based primarily on stone location. They also understand there is a risk of bleeding to the kidney, infection, damage to adjacent organs, and stone migration following the procedure. - Imaging left renal stones Procedure optimization has been performed with IV acetaminophen given in the holding area and 1 L of lactated Ringer's to be given in order to optimize the fluid-stone interface. 20 mg of IV Lasix will be given in the last 5 minutes of the procedure to optimize stone clearance. Procedure: After informed consent was verified the patient was brought to the operating room and placed in a supine position. Anesthesia was performed per protocol. Safety pause time-out was performed. Imaging was displayed in the room and laterality confirmed. ESWL was performed. The 1st 500 shocks were performed at 60 hertz. These were performed with increasing power. Once maximum power was reached the rate was increased to 180 hertz. A total of 2500 shocks were given. Targeted imaging with ultrasound/fluoroscopy showed stone smudging suggestive of disintegration. The patient tolerated the procedure well and was transferred to the recovery area upon completion. Post procedure imaging will be organized. There was no evidence for flank discoloration.
[2024-10-04 08:37] VITALS: BP 133/50; PULSE 71; RESP 18; O2SAT 97
[2024-10-04] MEDS: Phenazopyridine HCL 100 MG TABLET PO (08:37)
[2024-10-04] MEDS: Ketorolac Tromethamine 15 MG/ML VIAL IVPUSH (08:38)
[2024-10-04 08:42] VITALS: BP 120/69; PULSE 74; RESP 18; O2SAT 97
[2024-10-04 08:47] VITALS: BP 114/60; PULSE 75; RESP 18; O2SAT 97
[2024-10-04 08:59] VITALS: BP 137/62; PULSE 75; RESP 16; TEMP 36.2; O2SAT 96
== END 2024-10-04 09:31 | disposition home or self-care (01) ==
PROVIDERS: PCP Internal Medicine; Visit Provider Urology
PROC: (CPT 50590; principal; 2024-10-04 07:30)
DX: N20.2 Calculus of kidney with calculus of ureter (principal); N13.30 Unspecified hydronephrosis; Z87.442 Personal history of urinary calculi; Z88.2 Allergy status to sulfonamides; Z79.899 Other long term (current) drug therapy
CPT/HCPCS: 50590; 74018; J1100; J1885; J2003; J2250; J2405; J2704; J3010

== ENCOUNTER → 2024-10-04 05:53 | Outpatient (BNV) | payer MEDICARE, OTHER, SELFPAY | PROVIDERS: PCP Internal Medicine; Visit Provider Urology | DX: N20.0 Calculus of kidney (principal) | CPT/HCPCS: 50590 ==

== ENCOUNTER → 2024-10-04 06:00 | Outpatient (BNV) | payer MEDICARE, OTHER, SELFPAY | PROVIDERS: PCP Internal Medicine; Visit Provider Radiology Diagnostic Radiology | DX: N20.0 Calculus of kidney (principal) | CPT/HCPCS: 74018 ==

== ENCOUNTER 2024-10-09 08:48 | Outpatient (REF) | payer MEDICARE, OTHER, SELFPAY ==
--- NOTE | ~2024-10-09 | US_ITS ---
CLINICAL HISTORY: N20.0 - Calculus of kidney Exam: Ultrasound of the kidneys. Comparison: None. Findings: Right kidney measures 9.6 x 3.9 x 5.6 cm in size. Right kidney is of normal echotexture without focal lesion, nephrolithiasis, or hydronephrosis. Left kidney measures 10.8 x 5.4 x 4.5 cm in size. There is a 7 x 6 mm shadowing echogenic calculus within the lower pole of the left kidney without hydronephrosis. Impression: Nonobstructing left renal calculus. This document has been electronically signed by: Jason Shaikh MD on 10/09/2024 09:43:39
== END 2024-10-09 08:49 | disposition home or self-care (01) ==
LOC: HO.HMGCX 08:48
PROVIDERS: PCP Internal Medicine; Visit Provider Urology
DX: N20.0 Calculus of kidney (principal)
CPT/HCPCS: 76775

== ENCOUNTER → 2024-10-09 08:58 | Outpatient (BNV) | payer MEDICARE, OTHER, SELFPAY | PROVIDERS: PCP Internal Medicine; Visit Provider Radiology Diagnostic Radiology | DX: N20.0 Calculus of kidney (principal) | CPT/HCPCS: 76775 ==

== ENCOUNTER 2025-01-05 15:37 | Outpatient (AMB) | payer MEDICARE, OTHER, SELFPAY ==
--- NOTE | 2025-01-05 11:45 | A.OFFVIS_ITS ---
Intake Visit Reasons: Followup Intake Note: Patient is present for a follow up Urology Medication:NONE Antibiotic Allergy:SULFA Blood Thinner:NONE Coater Hand Required: No Allergies Sulfa (Sulfonamide Antibiotics) Allergy (Verified 01/05/25 15:56) Swelling HPI Comments Details: 01/05/25-- History of Present Illness The patient is a 75-year-old female presenting for a follow-up concerning nephrolithiasis management. Shockwave lithotripsy was performed in September, with an uncertain passage of stone fragments thereafter. Recent assessments reveal a persistent small fragment on ultrasound. Evaluation of a 24-hour urine collection showed suboptimal citrate levels, despite increased water consumption. The patient is cautious about oxalates, assisted by family advice, and plans to integrate more citrate into her diet, supported by the addition of vitamin B6. There has been a change in her calcium management from supplemental to dietary intake only, per previous medical guidance. An ongoing plan includes vigilant dietary hydration management, repeat stone imaging, and periodic urine tests in the coming months. Urinary Symptoms Review - Occasional stone passage post-lithotripsy - Increased hydration with a urine collection result of over one liter - Known stone fragment persistency noted on recent ultrasound - Oxalate levels within normal range Results - Ultrasound: Persistent small kidney stone fragment - 24-hour urine collection: Low citrate levels Discussion Notes During this consultation, we discussed the ongoing management of the patient's nephrolithiasis. The role of increasing hydration to over a liter per day was emphasized, alongside dietary modifications to boost citrate levels through lemon juice. There was agreement on supplementing with vitamin B6 to assist with oxalate management. Discussions about her calcium intake clarified the current preference for dietary sources in lieu of supplements, aligning with previously adjusted medical advice. Plans were outlined to conduct another 24-hour urine study and a follow-up imaging to re-evaluate stone status. Plan For nephrolithiasis, the plan includes increasing fluid intake and adding lemon juice to enhance citrate levels in the urine. Vitamin B6 supplementation is suggested to aid oxalate management. Calcium intake should remain dietary. Follow-up includes repeating 24-hour urine collection and imaging in a few months. Patient Instructions - Drink 48-64 ounces of fluids daily, primarily water. - Add 4 ounces of lemon juice to your water each day. - Take vitamin B6 as advised to help with oxalate metabolism. - Do not take additional calcium supplements unless instructed. - Expect follow-up contact for repeat testing and a follow-up imaging appointment. - If you have increased pain or symptoms, seek medical attention. Patient was informed and verbally consented to the use of an ambient scribe for clinic note documentation during this visit. Date of Service: 10/09/24-Impression: Nonobstructing left renal calculus. CLINICAL HISTORY: N20.0 - Calculus of kidney Exam: Ultrasound of the kidneys. Comparison: None. Findings: Right kidney measures 9.6 x 3.9 x 5.6 cm in size. Right kidney is of normal echotexture without focal lesion, nephrolithiasis, or hydronephrosis. Left kidney measures 10.8 x 5.4 x 4.5 cm in size. There is a 7 x 6 mm shadowing echogenic calculus within the lower pole of the left kidney without hydronephrosis. 07/31/24--here for stent removal. s/p left ureteroscopy laser lithotripsy s/p left ureteral stent on 07/11/24. I have discussed further stone management with left ESWL.Discussed risks to include but not limited to, blood in the urine, bruising to the skin, kidney hematoma, possible need for another procedure if a stone fragment obstructs the ureter while passing, possible need to repeat procedure if stone is not completely fragmented. Discussed diet management to include low oxalate diet and increasing fluid hydration. Plan for 24 hour urine collection, left ESWL. Left ureteral stent removed without difficulty. 07/07/24--Angela was seen in the emergency room on 07/06/2024 due to left-sided pain. CTAP noted 7 mm distal ureteral stone on the left with hydronephrosis. Also left renal stone lower pole. Right kidney no stones. Discussed treatment options to include ureteroscopy laser lithotripsy. [facility] Surgical History (Updated 10/04/24 @ 06:16 by Fany Crooks RN) H/O lithotripsy History of tubal ligation Social History Are you a primary healthcare business analyst to a significant other at home: No Do you presently have visiting nurse or other home services: No Patient Tobacco Use Status: Never used Tobacco Results AMB Urinalysis, Automated UA Leukoctes 70 Quynh/uL Last Edit by Shantal Jackson on 01/05/25 16:36 UA Nitrite Negative Last Edit by Crystal Jackson on 01/05/25 16:36 UA Urobilinogen 0.2 mg/dL Last Edit by Crystal Jackson on 01/05/25 16:36 UA Protein 15 mg/dL Last Edit by Crystal Jackson on 01/05/25 16:36 UA pH 6.5 Last Edit by Crystal Jackson on 01/05/25 16:36 UA Blood 200 Gary/uL Last Edit by Crystal Jackson on 01/05/25 16:36 UA Specific [place] 1.015 Last Edit by Crystal Jackson on 01/05/25 16:36 UA Ketone Negative Last Edit by Crystal Jackson on 01/05/25 16:36 UA Bilirubin 0 mg/dL Last Edit by Crystal Jackson on 01/05/25 16:36 UA Glucose 0 mg/dL Last Edit by Crystal Jackson on 01/05/25 16:36 Results Reviewed Results Reviewed: Date of Service: 10/09/24- CLINICAL HISTORY: N20.0 - Calculus of kidney Exam: Ultrasound of the kidneys. Comparison: None. Findings: Right kidney measures 9.6 x 3.9 x 5.6 cm in size. Right kidney is of normal echotexture without focal lesion, nephrolithiasis, or hydronephrosis. Left kidney measures 10.8 x 5.4 x 4.5 cm in size. There is a 7 x 6 mm shadowing echogenic calculus within the lower pole of the left kidney without hydronephrosis. Impression: Nonobstructing left renal calculus. Date of Service: 07/06/24 CT ABDOMEN AND PELVIS WITHOUT CONTRAST CLINICAL INFORMATION: Left flank pain, vomiting. COMPARISON: None available. TECHNIQUE: Multidetector volumetric imaging was performed from the superior aspect of the liver through the pubic symphysis. Sagittal and coronal reformatted images were obtained on the technologist's workstation. This CT examination was performed using dose optimization techniques as appropriate, variously including the following: *Automated exposure control *Adjustment of mA and/or kV according to patient size (this includes techniques or standardized protocols for targeted exams where dose is matched to indication/reason for exam; i.e. extremities or head) *Use of iterative reconstruction technique DLP: 735 mGy-cm FINDINGS: LUNG BASES: The visualized lung bases are unremarkable. LIVER, GALLBLADDER, AND BILIARY TREE: The liver is normal in size, shape, and attenuation. No focal hepatic lesion or biliary ductal dilatation is present. The gallbladder is unremarkable with no evidence of radiopaque gallstones, gallbladder wall thickening, or obvious pericholecystic inflammatory changes. PANCREAS: Unremarkable. SPLEEN: Unremarkable. ADRENAL GLANDS: Unremarkable. KIDNEYS AND URETERS: The kidneys are normal in size, shape, and attenuation. There is a nonobstructive 5 mm radiopaque calculi lower pole calyx left kidney. There is a 5 mm and a 7 mm obstructive radiopaque left distal ureter calculi with moderate hydroureteronephrosis. Intermingled with several phleboliths in the left pelvis as well. No previous exams in level for comparison. No radiopaque calculus in right kidney. There is no hydronephrosis. BLADDER: Unremarkable. GASTROINTESTINAL TRACT: There is scattered stool and gas seen in colon without distention. The small bowel loops are normal caliber. ABDOMINAL WALL: No significant hernia is appreciated. LYMPH NODES: Normal. VASCULAR: Unremarkable. PELVIC VISCERA: The uterus is anteverted and unremarkable. No free air or free fluid seen no adnexal mass. OSSEOUS STRUCTURES: Mild degenerative disc changes L2-3, L3-4 and L4-5 disc levels with vacuum disc phenomena. There is grade 1 anterolisthesis L3 over L4. No lytic or sclerotic process seen. IMPRESSION: 1. Obstructive radiopaque calculi distal left ureter with moderate hydroureteronephrosis. There is a nonobstructive radiopaque calculi lower pole calyx left kidney. 2. Mild constipation. Assessment & Plan Assessment & Plan Orders: Orders AMB Urinalysis Automated Today N13.30 - Unspecified hydronephrosis Coding
== END 2025-01-05 16:45 | disposition home or self-care (01) ==
LOC: HO.HUSH 15:37
PROVIDERS: PCP Internal Medicine; Visit Provider Urology
DX: N13.30 Unspecified hydronephrosis (principal)

== ENCOUNTER → 2025-01-05 15:37 | Outpatient (BNVA) | payer MEDICARE, OTHER, SELFPAY | PROVIDERS: PCP Internal Medicine; Visit Provider Urology | DX: N20.0 Calculus of kidney (principal) | CPT/HCPCS: 81003; 99212 ==

== ENCOUNTER 2025-06-14 07:26 | Outpatient (AMB) | payer MEDICARE, OTHER, SELFPAY ==
--- NOTE | 2025-06-14 07:27 | MHC.OFFVIS ---
Intake Visit Reasons: litholink Intake Note: Patient is present for a follow up telehealth for litholink results Urology Medication:NONE Antibiotic Allergy:SULFA Blood Thinner:NONE Pump House Technician Required: No Accompanied by: Self / Same As Patient Allergies Sulfa (Sulfonamide Antibiotics) Allergy (Verified 06/14/25 07:28) Swelling Medication List - Last Reconciled 06/14/25 by Eda Marks MD levothyroxine 50 mcg PO DAILY simvastatin 20 mg PO DAILY HPI Comments Details: 06/14/2025 Kaila is a 75-year-old female being monitored for nephrolithiasis she had a 24 hour Litholink performed volume 1.46 L urine calcium 167 urine oxalate 39 urine sodium 77 which is improved down from 141 of note urine calciums also improved 167 down from 322. 30 minutes spent in review of records pertaining to this visit and including [id number] discussion with the patient and documentation of this visit. History of Present Illness The patient is a 75-year-old female presenting with nephrolithiasis. She has been monitored for this condition and recently underwent a 24-hour urine collection to assess her metabolic status. The results showed a urine volume of 1.46 liters, urine calcium of 167 mg, urine oxalate of 39 mg, and urine sodium of 77 mg, which is an improvement from previous levels. The patient's urine calcium level has decreased significantly from 322 mg to 167 mg, now within the normal range, indicating a positive response to dietary modifications and possibly vitamin B6 supplementation. The patient has been taking vitamin B6 since the end of March, which she obtained after some difficulty in finding it OTC. The patient also reports a diagnosis of osteopenia, for which she was advised to take calcium with vitamin D supplements. She has been referred to nephrology for further management of her kidney stones and to discuss the appropriateness of calcium supplementation given her osteopenia. Results - 24-hour urine collection: Volume 1.46 liters, urine calcium 167 mg, urine oxalate 39 mg, urine sodium 77 mg Plan 1. Nephrolithiasis - Discussed 24-hour urine results - Referral to nephrology for further management and evaluation of calcium supplementation. - Plan for an ultrasound in six months to evaluate stone burden. 2. Osteopenia - Consideration of calcium with vitamin D supplementation. - Referral to nephrology to discuss the appropriateness of calcium supplementation. 01/05/25-- History of Present Illness The patient is a 75-year-old female presenting for a follow-up concerning nephrolithiasis management. Shockwave lithotripsy was performed in September, with an uncertain passage of stone fragments thereafter. Recent assessments reveal a persistent small fragment on ultrasound. Evaluation of a 24-hour urine collection showed suboptimal citrate levels, despite increased water consumption. The patient is cautious about oxalates, assisted by family advice, and plans to integrate more citrate into her diet, supported by the addition of vitamin B6. There has been a change in her calcium management from supplemental to dietary intake only, per previous medical guidance. An ongoing plan includes vigilant dietary hydration management, repeat stone imaging, and periodic urine tests in the coming months. Results - Ultrasound: 10/09/24--Persistent small left kidney stone fragment - 24-hour urine collection: Low citrate levels 07/31/24--here for stent removal. s/p left ureteroscopy laser lithotripsy s/p left ureteral stent on 07/11/24. I have discussed further stone management with left ESWL.Discussed risks to include but not limited to, blood in the urine, bruising to the skin, kidney hematoma, possible need for another procedure if a stone fragment obstructs the ureter while passing, possible need to repeat procedure if stone is not completely fragmented. Discussed diet management to include low oxalate diet and increasing fluid hydration. Plan for 24 hour urine collection, left ESWL. Left ureteral stent removed without difficulty. 07/07/24--Angela was seen in the emergency room on 07/06/2024 due to left-sided pain. CTAP noted 7 mm distal ureteral stone on the left with hydronephrosis. Also left renal stone lower pole. Right kidney no stones. Discussed treatment options to include ureteroscopy laser lithotripsy. [facility] Surgical History H/O lithotripsy History of tubal ligation Social History Are you a primary childcare center administrator to a significant other at home: No Do you presently have visiting nurse or other home services: No Patient Tobacco Use Status: Never used Tobacco Review of Systems Const All systems reviewed & are unremarkable except as noted in HPI and below Reports no additional complaints Eyes Reports no additional complaints ENT Reports no additional complaints Card Reports no additional complaints Resp Reports no additional complaints GI Reports no additional complaints Reports as per HPI Musc Reports no additional complaints Skin/Breast Reports system reviewed and no additional complaints, except as documented Neuro Reports no additional complaints Psych Reports no additional complaints Endo Reports no additional complaints [place]/Lymph Reports no additional complaints Aller/Immun Reports no additional complaints Telehealth Telehealth Telehealth Platform: [employer] Location of provider rendering services: practice address Location of patient: address on file Patient Identification confirmed using: Name, : Yes Telehealth method: video Patient verbally consented to treatment: Yes Patient verbally consented to billing insurance company: Yes Patient informed of any privacy concerns related to visit: Yes Results Reviewed Results Reviewed: Date of Service: 10/09/24- CLINICAL HISTORY: N20.0 - Calculus of kidney Exam: Ultrasound of the kidneys. Comparison: None. Findings: Right kidney measures 9.6 x 3.9 x 5.6 cm in size. Right kidney is of normal echotexture without focal lesion, nephrolithiasis, or hydronephrosis. Left kidney measures 10.8 x 5.4 x 4.5 cm in size. There is a 7 x 6 mm shadowing echogenic calculus within the lower pole of the left kidney without hydronephrosis. Impression: Nonobstructing left renal calculus. Date of Service: 07/06/24 CT ABDOMEN AND PELVIS WITHOUT CONTRAST CLINICAL INFORMATION: Left flank pain, vomiting. COMPARISON: None available. TECHNIQUE: Multidetector volumetric imaging was performed from the superior aspect of the liver through the pubic symphysis. Sagittal and coronal reformatted images were obtained on the technologist's workstation. This CT examination was performed using dose optimization techniques as appropriate, variously including the following: *Automated exposure control *Adjustment of mA and/or kV according to patient size (this includes techniques or standardized protocols for targeted exams where dose is matched to indication/reason for exam; i.e. extremities or head) *Use of iterative reconstruction technique DLP: 735 mGy-cm FINDINGS: LUNG BASES: The visualized lung bases are unremarkable. LIVER, GALLBLADDER, AND BILIARY TREE: The liver is normal in size, shape, and attenuation. No focal hepatic lesion or biliary ductal dilatation is present. The gallbladder is unremarkable with no evidence of radiopaque gallstones, gallbladder wall thickening, or obvious pericholecystic inflammatory changes. PANCREAS: Unremarkable. SPLEEN: Unremarkable. ADRENAL GLANDS: Unremarkable. KIDNEYS AND URETERS: The kidneys are normal in size, shape, and attenuation. There is a nonobstructive 5 mm radiopaque calculi lower pole calyx left kidney. There is a 5 mm and a 7 mm obstructive radiopaque left distal ureter calculi with moderate hydroureteronephrosis. Intermingled with several phleboliths in the left pelvis as well. No previous exams in level for comparison. No radiopaque calculus in right kidney. There is no hydronephrosis. BLADDER: Unremarkable. GASTROINTESTINAL TRACT: There is scattered stool and gas seen in colon without distention. The small bowel loops are normal caliber. ABDOMINAL WALL: No significant hernia is appreciated. LYMPH NODES: Normal. VASCULAR: Unremarkable. PELVIC VISCERA: The uterus is anteverted and unremarkable. No free air or free fluid seen no adnexal mass. OSSEOUS STRUCTURES: Mild degenerative disc changes L2-3, L3-4 and L4-5 disc levels with vacuum disc phenomena. There is grade 1 anterolisthesis L3 over L4. No lytic or sclerotic process seen. IMPRESSION: 1. Obstructive radiopaque calculi distal left ureter with moderate hydroureteronephrosis. There is a nonobstructive radiopaque calculi lower pole calyx left kidney. 2. Mild constipation. Assessment & Plan Assessment & Plan (1) Kidney stone on left side: Code(s): N20.0 - Calculus of kidney Category: Medical (2) Hypercalciuria: Code(s): R82.994 - Hypercalciuria Category: Medical Plan Plan 1. Nephrolithiasis - Discussed 24-hour urine results - Referral to nephrology for further management and evaluation of calcium supplementation. - Plan for an ultrasound in six months to evaluate stone burden. 2. Osteopenia - Consideration of calcium with vitamin D supplementation. - Referral to nephrology to discuss the appropriateness of calcium supplementation. Orders: Orders US renal BI 5 Months N20.0 - Calculus of kidney Referrals Nephrology Referral N20.0 - Calculus of kidney, R82.994 - Hypercalciuria Patient Instructions: The patient had an opportunity to ask questions regarding treatment plan. The patient expressed understanding and agreement with the above treatment plan. The patient is aware they should contact our office by phone for worsening of their current condition or the appearance of new symptoms. Compliance is encouraged with any medications and followup testing that is ordered. It is a privilege to be allowed the opportunity to participate in the urologic care of your patient. If you have any questions or concerns regarding treatment for the above conditions please do not hesitate to contact me. The office telephone contact is [phone]. This note is constructed in part using voice recognition software. While every effort has been made to ensure accuracy supervisor plastic sheets errors may have been included. Yours sincerely, Eda Marks MD Scribe Plan - Not visible on output: Patient was informed and verbally consented to the use of an ambient scribe for clinic note documentation during this visit. Coding Level of Care Code Tele Est Pt Level 4 (69120) Complex EM visit Add On G2211 Diagnoses Kidney stone on left side N20.0 Hypercalciuria R82.994
--- OUTSIDE RECORDS SUMMARY | 2025-06-14 07:29 | XMS_ITS ---
Author Name [facility] Organization Unknown Care Team Organization Name Specialty Phone Email Start Date End Da te [facility] 05/09/2025 [facility] Megha Miller Primary Care 07/28/2022 4
--- OUTSIDE RECORDS SUMMARY | 2025-06-14 07:29 | XMS_ITS | Encounter Summary ---
Author Organization [facility] Address [address] [place] [address] Care Team Providers Care Inspector Packer Name Role Phone Megha Miller MD Primary Care Provider [phone] Encounter Details Date Type Department Care Team Description 02/15/2015 Business Doc Medical Records [address] [place] [address] Abstract, Provider Social History Tobacco Use Types Packs/Day Years Used Date Smoking Tobacco: Never Smokeless Tobacco: Never Alcohol Use Standard Drinks/Week Comments No 0 (1 standard drink = 0.6 oz pur e alcohol) Sex Assigned at Date Recorded Not on file Job Start Date Occupation Industry Not on file Not on file Not on file documented as of this encounter Plan of Treatment Not on file documented as of this encounter Visit Diagnoses Not on filedocumented in this encounter Care Teams Inspector Packer Relationship Specialty Start Date End Date Megha Miller MD [address], [place] [phone] PCP - General 04/06/06 documented as of this encounter
--- OUTSIDE RECORDS SUMMARY | 2025-06-14 07:29 | XMS_ITS | Encounter Summary ---
Author Organization [facility] Address [address] [place] [address] Care Team Providers Care Audiovisual Production Specialist Name Role Phone Megha Miller MD Primary Care Provider [phone] Encounter Details Date Type Department Care Team Description 02/14/2019 Business Doc Medical Records [address] [place] [address] Abstract, Provider Social History Tobacco Use Types Packs/Day Years Used Date Smoking Tobacco: Never Smokeless Tobacco: Never Alcohol Use Standard Drinks/Week Comments No 0 (1 standard drink = 0.6 oz pur e alcohol) Occ Sex Assigned at Date Recorded Not on file Job Start Date Occupation Industry Not on file Not on file Not on file documented as of this encounter Plan of Treatment Not on file documented as of this encounter Visit Diagnoses Not on filedocumented in this encounter Care Teams Audiovisual Production Specialist Relationship Specialty Start Date End Date Megha Miller MD [address] [place], [place] [phone] PCP - General 04/06/06 documented as of this encounter
--- OUTSIDE RECORDS SUMMARY | 2025-06-14 07:29 | XMS_ITS | Encounter Summary ---
Author Organization [facility] Address [address] [place] [address] Care Team Providers Care Assistant Infant Teacher Name Role Phone Megha Miller MD Primary Care Provider [phone] Encounter Details Date Type Department Care Team Description 06/29/2024 Telephone [facility] [address], [place] [phone] Ziggy Arroyo, PA-C [address] [place], [place] [phone] Social History Tobacco Use Types Packs/Day Years [...] on filedocumented in this encounter Care Teams Assistant Infant Teacher Relationship Specialty Start Date End Date Megha Miller MD [address], [place] [phone] PCP - General 04/06/06 documented as of this encounter
--- OUTSIDE RECORDS SUMMARY | 2025-06-14 07:29 | XMS_ITS | Encounter Summary ---
Author Organization [facility] Address [address] [place] [address] Care Team Providers Care Prototype Machine Operator Name Role Phone Megha Miller MD Primary Care Provider [phone] Encounter Details Date Type Department Care Team Description 07/31/2022 Business Doc Medical Records [address] [place] [id number] Abstract, Provider Social History Tobacco Use Types Packs/Day Years Used Date Smoking Tobacco: Never Smokeless Tobacco: Never Alcohol Use Standard Drinks/Week Comments No 0 (1 standard drink = 0.6 oz pur e alcohol) Occ Sex Assigned at Date Recorded Not on file Job Start Date Occupation Industry Not on file Not on file Not on file COVID-19 Exposure Response Date Recorded In the last 10 days, have yo u been in contact with someone who was confirmed or suspected to have Coronavirus/COVID-19? No / Unsure 07/30/2022 9:46 AM EST documented as of this encounter Plan of Treatment Not on file documented as of this encounter Visit Diagnoses Not on filedocumented in this encounter Care Teams Prototype Machine Operator Relationship Specialty Start Date End Date Megha Miller MD [address], [place] [phone] PCP - General 04/06/06 documented as of this encounter
--- OUTSIDE RECORDS SUMMARY | 2025-06-14 07:29 | XMS_ITS | Encounter Summary ---
Author Organization [facility] Address [address] [place] [address] Care Team Providers Care Finish Off Operator Name Role Phone Megha Miller MD Primary Care Provider [phone] Reason for Visit * Reason Onset Date Comments Provider Call Back 01/06/2017 Orders Call 01/06/2017 Encounter Details Date Type Department Care Team Description 01/06/2017 Telephone Adult Medicine [address] [address] No Powers PA-C [address] [place] [id number] Provider Call Back; Orders Call Social History Tobacco Use Types Packs/Day Years Used Date Smoking Tobacco: Never Smokeless Tobacco: Never Alcohol Use Standard Drinks/Week Comments No 0 (1 standard drink = 0.6 oz pur e alcohol) Sex Assigned at Date Recorded Not on file Job Start Date Occupation Industry Not on file Not on file Not on file documented as of this encounter Miscellaneous Notes * Telephone Encounter - Rachell Alarcon C.M.A. - 01/08/2017 9:24 AM EDT Message left for patient to return my call. * Telephone Encounter - No Powers PA-C - 01/07/2017 6:24 PM EDT I have discussed this with Dr. Miller. At this time, I am unable to change the diagnosis code because at the patient's most recent visit she denied cough, shortness of breath, difficulty breathing, paroxysmal nocturnal dyspnea, orthopnea, lower extremity edema, chest pressure, chest pain, palpitations, dizziness, fever, or shaking chills. Therefore, as planned, the patient should follow-up with pulmonology - Dr. Webster - for further evaluation. Please advise patient. No Powers PA-C * Telephone Encounter - Rachell Alarcon C.M.A. - 01/06/2017 2:22 PM EDT Please advise * Telephone Encounter - Adriane Eatsman - 01/06/2017 1:45 PM EDT Caller requesting call back from provider: Is the caller the patient? YES If caller is not the patient, what is the callers name? N/A Callers relationship to patient? N/A If person calling is not the patient themselves, is there a verbal release in FYI or permanent comments for this person: YES Reason for call back: Patient says she was unable to have her echo cardiogram as her insurance wontcover it due to the diagnosis, patient says diagnosis needs to be SOB, patient wants to know if shestill needs to have it done and if so, please change diagnosis so the her insurance will cover it. Caller offered to speak with the nurse for assistance: YES Response: Patient offered to speak with nurse for assistance and patient agreed. Message forwarded to nurse. documented in this encounter Plan of Treatment Not on file documented as of this encounter Visit Diagnoses Not on filedocumented in this encounter Care Teams Finish Off Operator Relationship Specialty Start Date End Date Megha Miller MD [address] [place] [id number] PCP - General 04/06/06 documented as of this encounter
--- OUTSIDE RECORDS SUMMARY | 2025-06-14 07:29 | XMS_ITS | Encounter Summary ---
Author Organization [facility] Address [address] [place] [address] Care Team Providers Care Entertainment Director Name Role Phone Megha Miller MD Primary Care Provider [phone] Encounter Details Date Type Department Care Team Description 01/11/2017 Author Report Medical Records [address] [place] [address] Trinity Chanel MD [address] [place] [id number] Social History Tobacco Use Types Packs/Day Years [...] on filedocumented in this encounter Care Teams Entertainment Director Relationship Specialty Start Date End Date Megha Miller MD [address] [place] [address] PCP - General 04/06/06 documented as of this encounter
--- OUTSIDE RECORDS SUMMARY | 2025-06-14 07:29 | XMS_ITS | Encounter Summary ---
Author Organization [facility] Address [address] [place] [address] Care Team Providers Care Child Development Professor Name Role Phone Megha Miller MD Primary Care Provider [phone] Encounter Details Date Type Department Care Team Description 10/29/2016 Hospital Medical Records [address] [place] [address] Social History Tobacco Use Types Packs/Day Years [...] on filedocumented in this encounter Care Teams Child Development Professor Relationship Specialty Start Date End Date Megha Miller MD [address] [place], [place] [phone] PCP - General 04/06/06 documented as of this encounter
--- OUTSIDE RECORDS SUMMARY | 2025-06-14 07:29 | XMS_ITS | Encounter Summary ---
Author Organization [facility] Address [address] [place] [address] Care Team Providers Care Typewriter Operator Automatic Name Role Phone Megha Miller MD Primary Care Provider [phone] Reason for Visit * Reason Onset Date Comments Special Procedure 07/01/2017 Encounter Details Date Type Department Care Team Description 07/01/2017 Telephone Gastroenterology - [address] [address] Jb Rizo MD Special Procedure Social History Tobacco Use Types Packs/Day Years [...] encounter Miscellaneous Notes * Telephone Encounter - Jb Rizo MD - 07/01/2017 7:17 PM EDT Thank you. * Telephone Encounter - Renate Gonsales - 07/01/2017 5:[address] bJ Rizo, Three attempts have been made to contact patient in order to fulfill the requested 10 year repeat colonoscopy procedure that has been placed for patient, unfortunately patient has not responded to any of our attempts, for this reason patient will be taken off our wait list and no more attempts willbe made by the GI department at this time. I to GI provider and pcp. documented in this encounter Plan of Treatment Not on file documented as of this encounter Visit Diagnoses Not on filedocumented in this encounter Care Teams Typewriter Operator Automatic Relationship Specialty Start Date End Date Megha Miller MD [address] [place] [id number] PCP - General 04/06/06 documented as of this encounter
--- OUTSIDE RECORDS SUMMARY | 2025-06-14 07:29 | XMS_ITS | Encounter Summary ---
Author Organization [facility] [employer] [facility] Address [address] [place] [address] Care Team Providers Care It Consulting Manager Name Role Phone Megha Miller MD Primary Care Provider [phone] Encounter Details Date Type Department Care Team Description 10/26/2018 Business Doc Medical Records [address] [place] [address] Abstract, Provider Social History Tobacco Use Types [...] on filedocumented in this encounter Care Teams It Consulting Manager Relationship Specialty Start Date End Date Megha Miller MD [address] [place], [place] [phone] PCP - General 04/06/06 documented as of this encounter
--- OUTSIDE RECORDS SUMMARY | 2025-06-14 07:29 | XMS_ITS | Encounter Summary ---
Author Organization [facility] Address [address] [place] [address] Care Team Providers Care Patch Machine Operator Name Role Phone Megha Miller MD Primary Care Provider [phone] Encounter Details Date Type Department Care Team Description 11/04/2016 Release of Information Medical Records [address] [place] [address] Abstract, Provider Social History Tobacco Use Types [...] on filedocumented in this encounter Care Teams Patch Machine Operator Relationship Specialty Start Date End Date Megha Miller MD [address] [place] [id number] PCP - General 04/06/06 documented as of this encounter
--- OUTSIDE RECORDS SUMMARY | 2025-06-14 07:29 | XMS_ITS | Encounter Summary ---
Author Organization [facility] Address [address] [place] [address] Care Team Providers Care Disability Advocate Name Role Phone Megha Miller MD Primary Care Provider [phone] Encounter Details Date Type Department Care Team Description 10/18/2017 Transfer Records Medical Records [address] [place] [address] Abstract, Provider Social History Tobacco Use Types [...] on filedocumented in this encounter Care Teams Disability Advocate Relationship Specialty Start Date End Date Megha Miller MD [address] [place], [place] [phone] PCP - General 04/06/06 documented as of this encounter
--- OUTSIDE RECORDS SUMMARY | 2025-06-14 07:29 | XMS_ITS | Encounter Summary ---
Author Organization [facility] Address [address] [place] [address] Care Team Providers Care Associate Professor Of Law Name Role Phone Megha iMller MD Primary Care Provider [phone] Encounter Details Date Type Department Care Team Description 10/26/2017 Business Doc Medical Records [address] [place] [address] Abstract, Provider Social History Tobacco Use Types [...] on filedocumented in this encounter Care Teams Associate Professor Of Law Relationship Specialty Start Date End Date Megha Miller MD [address] [place], [place] [phone] PCP - General 04/06/06 documented as of this encounter
--- OUTSIDE RECORDS SUMMARY | 2025-06-14 07:29 | XMS_ITS | Clinical Summary ---
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 Active brimonidine (ALPHAGAN) 0.2 % ophthalmic solution Administer 1 drop into both eyes every 12 (twelve) hours. 4 Active simvastatin (ZOCOR) 20 mg tablet TAKE 1 TABLET BY MOUTH EVERYDAY AT BEDTIME 90 tablet 1 5 Active multivitamin tablet Take 1 tablet by mouth 1 (one) time each day. Active levothyroxine (SYNTHROID, LEVOTHROID) 50 mcg tablet Take 1 tablet (50 mcg total) by mouth 1 (one) time each day before breakfast. 90 tablet 1 5 Active Active Problems Problem Noted Date Diagnosed Date Osteopenia 04/02/2025 Glaucoma 09/27/2024 Kidney stone 09/27/2024 History of basal cell carcinoma 11/25/2023 Pleural effusion 02/08/2017 Overview (09/24/2024): Persistent, residual from pneumonia, right sided Iron deficiency anemia 11/28/2009 Obesity (BMI 30.0-34.9) 08/03/2006 Hyperlipidemia 05/03/2006 Hypothyroidism 04/13/2006 Encounters Date Type Department Care Team Description 04/02/2025 9:39 AM EDT - 04/02/2025 11:59 PM EDT Hospital Encounter Bone Density - [place] [id number] [place], [place] [phone] Postmenopausal Discharge Disposition: Home or Self Care 03/28/2025 8:00 AM EDT Office Visit Adult Medicine [facility] [address] [place] [address] No Powers PA Encounter for annual wellness visit (AWV) in Medicare patient (Primary Dx); Mixed hyperlipidemia; Hypothyroidism due to acquired atrophy of thyroid; Obesity (BMI 30.0-34.9); Postmenopausal; Antibody response exam from Last 3 Months Immunizations Name Administration Dates Next Due Influenza Quadravalent, 0.5ml (Fluad) 65yo and o lder 07/09/2023 Influenza Quadravalent, 0.5m l (Fluzone High-dose) 65yo and older 07/15/2022 Influenza trivalent, with pr eservative (Fluzone; Afluria) 6mo and older 06/15/2024 Pneumococcal conjugate 13 va lent (Prevnar 13, PCV13) 2mo and older 02/13/2015 Pneumococcal polysaccharide 23 valent (Pneumovax 23) 2yo and older 01/24/2014 RSV, bivalent, protein subun it RSVpreF, 0.5mL, Preservative Free (Arexvy) 60yo and older 10/12/2023 Td Tetanus diptheria (Tdvax) 7yo and older 11/24,08/03/2006 Tdap Tetanus diptheria acell ular pertussis (Boostrix; Adacel) 7yo and older 10/19/2011 Zoster Live 01/07/2011 Zoster recombinant (Shingrix) 19yo and older ,07/10/2021 Surgical History Surgery Date Site/Laterality Comments TUBAL LIGATION COLONOSCOPY 04/01/2007 normal; repeat in ten years ESOPHAGOGASTRODUODENOSCOPY 12/16/2009 normal BREAST BIOPSY 10/2015 rt breast bx--benign SCREENING MAMMOGRAM 08/15/2024 Bilateral Medical History Medical History Date Comments Morbid obesity ([facility] V24, [facility] V28) 08/03/2006 Pleural effusion 02/08/2017 Persistent, res idual from pneumonia, right sided History of basal cell carcinoma : BCC 01/01 right upper nose (nodular) Hyperlipidemia 05/03/2006 Hypothyroidism 04/13/2006 Glaucoma 09/27/2024 Kidney stone 09/27/2024 Family History Medical History Relation Name Comments Stomach cancer Father 76 Coronary artery disease Mother sten t, macular degeneration, cataract Breast cancer Neg Hx Relation Name Status Comments Father Mother Social History Tobacco Use Types Packs/Day Years Used Date Smoking Tobacco: Never Smokeless Tobacco: Never Tobacco Cessation:Counseling Given: Not Answered Alcohol Use Standard Drinks/Week Comments No 0 (1 standard drink = 0.6 oz pur e alcohol) Housing Instability Answer Date Recorde d Are you worried that in the next 2 months you may not have stable housing? No 03/22/2025 Food Access & Nutrition Answer Date Rec orded Do you have access to a vari ety of food including fruits and vegetables? Yes 03/22/2025 Access to Healthcare Answer Date Record ed Within the last 3 months, ho w many times did you visit the emergency department for your medical care? 0 03/22/2025 Health Literacy Answer Date Recorded How often do you need to hav e someone help you when you read instructions, pamphlets, or other written material from your doctor or pharmacy? Never 03/22/2025 Caregiver: How often do you need to have someone help you when you read instructions, pamphlets, or other written material from your doctor or pharmacy? Not on file 03/22/2025 Financial Risk Answer Date Recorded How hard is it for you to pa y for the very basics like food, housing, medical care, and air conditioning / heating? Not very hard 03/22/2025 Transportation Answer Date Recorded Has the lack of transportati on kept you from meetings, work, or from getting things needed for daily living? No Has the lack of transportati on kept you from medical appointments or from getting medications? No 03/22/2025 Social Isolation Answer Date Recorded How often do you feel lonely or isolated from th ose around you? Never 03/22/2025 Food Risk Answer Date Recorded Within the past 12 months we worried whether our food would run out before we got money to buy more. Never true 03/22/2025 Within the past 12 months th e food we bought just didn't last and we didn't have money to get more. Never true 03/22/2025 Dependent Care Answer Date Recorded Do you need help finding or paying for care for your loved ones. For example, child day care teacher or elderly care for an older adult? No 03/22/2025 Education Answer Date Recorded Do you think completing more education or training, like finishing a GED, going to college, or learning a trade, would be helpful for you? No 03/22/2025 Employment and Income Answer Date Recor ded During the last four weeks, have you been actively looking for work? No 03/22/2025 Living Situation Answer Date Recorded What is your living situation? 0 03/22/2025 Comments Unknown Sex and Gender Information Value Date Recorded Sex Assigned at Not on file Legal Sex Female 5:52 PM EST Gender Identity Not on file Sexual Orientation Not on file Obstetrics History Para Term AB IAB SAB Ectopic Multiple Livin g Live Births 2 2 2 2 Date Outcome GA Total Labor Labor/2nd/3rd Weight Sex Type Anes PTL Maya A1 A5 Name Clin Term Term Last Filed Vital Signs Vital Sign Reading Time Taken Comments Blood Pressure 138/70 03/28/2025 8:08 AM EDT Pulse 90 03/28/2025 8:08 AM EDT Temperature 36.4 C (97.5 F) 03/28/2025 8:08 AM EDT Respiratory Rate 16 03/28/2025 8:08 AM EDT Oxygen Saturation 95% 03/28/2025 8:08 AM EDT Inhaled Oxygen Concentration - - Weight 86.6 kg (191 lb) 03/28/2025 8:08 AM EDT Height 160 cm (5' 3 ) 03/28/2025 8:08 AM EDT Body Mass Index 33.83 03/28/2025 8:08 AM EDT Plan of Treatment Upcoming Encounters Date Type Department Care Team (Late st Contact Info) Description 09/28/2025 8:15 AM EST Office Visit [address] [phone] Megha Miller MD [address] [place] [phone] 03/28/2026 10:30 AM EDT Office Visit [address] [phone] No Powers PA [address] [place] [phone] Health Maintenance Due Date Last Done Comments Influenza Vaccine (#1) 2025 , 07/09/2023, 07/15/2022 Social Influencers of Health Screening 03/22/2026 03/22/2025 Falls Risk Assessment 03/28/2026 03/28/2025, 023 Medicare Annual Wellness Visit 03/28/2026 03/28/2025 Cholesterol Screening (Lipid Panel) 03/28/2030 03/28/2025, 03/27/2024, 03/24/2023 DTaP,Tdap,and Td Vaccines (4 - Td or Tdap) 11/25/2031 11/24/2021, 10/19/2011, 08/03/2006 Osteoporosis Screening (Bone Density Screening) 04/02/2040 04/02/2025 Hepatitis C Screening Addressed 10/20/2012 Overri dden with the intention of not completing the topic Pneumococcal Vaccine: 50+ Years Completed 02/13/2015, 01/24/2014 Colorectal Cancer Screening: Colonoscopy Discontinued 03/09/2018 Zoster Vaccines Completed 01/01/2022, 06/21, 01/07/2011 RSV Immunization Adult Patients Completed 10/12/2023 Breast Cancer Screening Discontinued 08/15/20 24, 08/05/2023, 07/30/2022, Additional history exists COVID-19 Vaccine Completed 12/19/2024, , 07/09/2023, Additional history exists Depression Screening Completed 03/22/2025 HIB Vaccines Aged Out No longer eligi ble based on patient's age to complete this topic HPV Vaccines Aged Out No longer eligi ble based on patient's age to complete this topic Hepatitis A Vaccines Aged Out No long er eligible based on patient's age to complete this topic Hepatitis B Vaccines Aged Out No long er eligible based on patient's age to complete this topic IPV Vaccines Aged Out No longer eligi ble based on patient's age to complete this topic MMR Vaccines Aged Out No longer eligi ble based on patient's age to complete this topic Meningococcal ACWY Vaccine Aged Out N o longer eligible based on patient's age to complete this topic Meningococcal B Vaccine Aged Out No l onger eligible based on patient's age to complete this topic RSV Immunization Patients Under 20 months Aged Out No longer eligible based on patient's age to complete this topic Varicella Vaccines Aged Out No longer eligible based on patient's age to complete this topic Procedures Procedure Name Priority Date/Time Associated Diagnosis Comments BD BONE DENSITY DXA AXIAL SKELETON Routine 04/02/2025 10:03 AM EDT Postmenopausal COMPLETE BLOOD COUNT Routine 03/28/2025 8:54 AM EDT Mixed hyperlipidemia Hypothyroidism due to acquired atrophy of thyroid Obesity (BMI 30.0-34.9) THYROID STIMULATING HORMONE Routine 03/28/2025 8:54 AM EDT Mixed hyperlipidemia Hypothyroidism due to acquired atrophy of thyroid Obesity (BMI 30.0-34.9) LIPID PANEL WITH REFLEX TO DIRECT LDL Routine 03/28/2025 8:54 AM EDT Mixed hyperlipidemia Hypothyroidism due to acquired atrophy of thyroid Obesity (BMI 30.0-34.9) COMPREHENSIVE METABOLIC PANEL Routine 03/28/2025 8:54 AM EDT Mixed hyperlipidemia Hypothyroidism due to acquired atrophy of thyroid Obesity (BMI 30.0-34.9) RUBEOLA ANTIBODY IGG Routine 03/28/2025 8:54 AM EDT Antibody response exam MG MAMMO DIGITAL SCREENING W SHAYNE BILAT Routine 08/15/2024 10:30 AM EST Encounter for screening mammogram for breast cancer from Last 3 Months or Most Recently Relevant to Health Maintenance Results * BD Bone Density DXA Axial Skeleton (04/02/2025 10:03 AM EDT) Anatomical Region Laterality Modality Wrist, Hip, L-spine Bone Densito metry 04/02/2025 3:19 PM EDT Impressions 04/02/2025 3:22 PM EDT Osteopenia by WHO criteria. This patient has an 11% risk of major osteoporotic fracture and a 2.2% risk of hip fracture over the next 10 years. (World Health Organization Fracture Risk Assessment) The [facility] Department of Internal Medicine recommends using National Osteoporosis Foundation (NOF) guidelines in treatment decisions related to osteoporosis. NOF guidelines suggest considering treatment for postmenopausal women and men aged 50 or older presenting with the following: History of hip or vertebral fracture. T-score = -2.5 (DXA) at the femoral neck, total hip, or spine, after appropriate evaluation to exclude secondary causes. Low bone mass (T-score between -1.0 and -2.5 at the femoral neck or spine) AND a 10-year probability of a hip fracture = 3% OR a 10-year probability of a major osteoporosis-related fracture = 20% based on the [place]-adapted WHO algorithm Please note that all treatment decisions require clinical judgment and consideration of individual patient factors, including patient preferences, co-morbidities, previous drug use, risk factors not captured in the FRAX model (e.g., frailty, falls, vitamin D deficiency, increased bone turnover, interval significant decline in bone density) and possible under- or over-estimation of fracture risk by FRAX. Optional alternative screening schedule based on heber Harris., [facility] October 08, 2011 for patients with osteopenia (based on hip BMD T-score) is as follows: * advanced osteopenia (T scores -2.00 to -2.49), BMD testing every year * moderate osteopenia (T scores -1.50 to -1.99), BMD testing every 5 years mild osteopenia or normal BMD (T scores -1.50 and higher), BMD testing every 15 years -------- FINAL REPORT -------- Dictated By: Rosana Finnegan Dictated Date: 04/02/2025 15:19 ET Assigned Physician: Rosana Finnegan Reviewed and Electronically Signed By: Rosana Finnegan Signed Date: 04/02/2025 15:22 ET Workstation ID: [id number] Transcribed By: Self Edit Transcribed Date: 04/02/2025 15:19 ET Narrative 04/02/2025 3:22 PM EDT BONE DENSITY SCAN (DEXA): FINDINGS: Lumbar Spine L2-L4, L1 excluded T-score is 3.0. (SD relative to 20-29 y/o adult) Z-score is 5.6. (SD relative to age matched peers) This is considered normal by WHO criteria. Left Hip T-score is -1.6. Z-score is 0.6. This is considered osteopenia by WHO criteria. Comparison exam(s): 11/23/2014. 6.2% decrease in left hip bone mineral density and 23.6% increase in lumbar spine bone mineral density, both are statistically significant at the 95% confidence level. Lateral survey view of the thoracolumbar spine shows no significant compression deformities of the visualized vertebral elements. Procedure Note Rosana Finnegan MD - 04/02/2025 BONE DENSITY SCAN (DEXA): FINDINGS: Lumbar Spine L2-L4, L1 excluded T-score is 3.0. (SD relative to 20-29 y/o adult) Z-score is 5.6. (SD relative to age matched peers) This is considered normal by WHO criteria. Left Hip T-score is -1.6. Z-score is 0.6. This is considered osteopenia by WHO criteria. Comparison exam(s): 11/23/2014. 6.2% decrease in left hip bone mineraldensity and 23.6% increase in lumbar spine bone mineral density, both arestatistically significant at the 95% confidence level. Lateral survey view of the thoracolumbar spine shows no significantcompression deformities of the visualized vertebral elements. IMPRESSION: Osteopenia by WHO criteria. This patient has an 11% risk of majorosteoporotic fracture and a 2.2% risk of hip fracture over the next 10years. (World Health Organization Fracture Risk Assessment) The [facility] Department of Internal Medicine recommendsusing National Osteoporosis Foundation (NOF) guidelines in treatmentdecisions related to osteoporosis. NOF guidelines suggest consideringtreatment for postmenopausal women and men aged 50 or older presentingwith the following: History of hip or vertebral fracture. T-score = -2.5 (DXA) at the femoral neck, total hip, or spine, afterappropriate evaluation to exclude secondary causes. Low bone mass (T-score between -1.0 and -2.5 at the femoral neck or spine)AND a 10-year probability of a hip fracture = 3% OR a 10-year probabilityof a major osteoporosis-related fracture = 20% based on the [place]-adapted WHOalgorithm Please note that all treatment decisions require clinical judgment andconsideration of individual patient factors, including patientpreferences, co-morbidities, previous drug use, risk factors not capturedin the FRAX model (e.g., frailty, falls, vitamin D deficiency, increasedbone turnover, interval significant decline in bone density) and possibleunder- or over-estimation of fracture risk by FRAX. Optional alternative screening schedule based on veronica Harris al., [facility] for patients with osteopenia (based on hip BMD T-score)is as follows: * advanced osteopenia (T scores -2.00 to -2.49), BMD testing every year * moderate osteopenia (T scores -1.50 to -1.99), BMD testing every 5years mild osteopenia or normal BMD (T scores -1.50 and higher), BMD testingevery 15 years -------- FINAL REPORT -------- Dictated By: Rosana Finnegan Dictated Date: 04/02/2025 15:19 ET Assigned Physician: Rosana Finnegan Reviewed and Electronically Signed By: Rosana Finnegan Signed Date: 04/02/2025 15:22 ET Workstation ID: [id number] Transcribed By: Self Edit Transcribed Date: 04/02/2025 15:19 ET us No HUNT IMG DXA PROCEDURES Final Resu lt * (ABNORMAL) Lipid panel with reflex to direct LDL (03/28/2025 8:54 AM EDT) Cholesterol 184 0 - 200 mg/dL LAB CHEMISTRY METHOD 03/28/2025 1:06 PM EDT [facility] Triglycerides 184(H) 0 - 150 mg/dL LAB CHEMISTRY METHOD 03/28/2025 1:06 PM EDT [facility] HDL 67 >=40 mg/dL LAB CHEMISTRY METHOD 03/28/2025 1:06 PM EDT [facility] LDL Calculated 80 0 - 100 mg/dL LAB CHEMISTRY METHOD 03/28/2025 1:06 PM EDT [facility] VLDL Cholesterol Amari 36.8 mg/dL LAB CHEMISTRY METHOD 03/28/2025 1:06 PM EDT [facility] Non HDL Chol. (LDL+VLDL) 117 <145 mg/dL LAB CHEMISTRY METHOD 03/28/2025 1:06 PM EDT [facility] Chol/HDL Ratio 2.7 0.0 - 4.4 LAB CHEMISTRY METHOD 03/28/2025 1:06 PM EDT [facility] Blood Venous blood specimen / Unknown Venipuncture / Unknown 03/28/2025 8:54 AM EDT 03/28/2025 8:54 AM EDT us No HUNT LAB BLOOD ORDERABLES Final Re sult [facility] [address] [place] [address], * Rubeola antibody IgG (03/28/2025 8:54 AM EDT) Rubeola IgG Positive Positive LAB CHEMISTRY METHOD 03/28/2025 1:26 PM EDT [facility] Rubeola IgG Antibody, measured 155.00 >=16.50 AU/mL LAB CHEMISTRY METHOD 03/28/2025 1:26 PM EDT [facility] Blood Venous blood specimen / Unknown Venipuncture / Unknown 03/28/2025 8:54 AM EDT 03/28/2025 8:54 AM EDT Narrative [facility] - 03/28/2025 1:26 PM EDT Interpretation >=16.5 AU/ml is considered to be consistent with Immunity us No HUNT LAB BLOOD ORDERABLES Final Re sult [facility] [address] [place] [address], * Complete blood count (03/28/2025 8:54 AM EDT) WBC 5.3 4.8 - 10.8 K/mcL LAB HEMETOLOGY METHOD 03/28/2025 10:28 AM EDT [facility] RBC 4.20 3.80 - 4.80 M/[facility] LAB HEMETOLOGY METHOD 03/28/2025 10:28 AM EDT [facility] Hemoglobin 13.4 11.5 - 16.0 g/dL LAB HEMETOLOGY METHOD 03/28/2025 10:28 AM EDT [facility] Hematocrit 41.1 35.0 - 47.0 % LAB HEMETOLOGY METHOD 03/28/2025 10:28 AM EDT [facility] MCV 97.6 79.0 - 98.0 FL LAB [facility] MCH 31.8 27.0 - 32.0 pcg LAB HEMETOLOGY METHOD 03/28/2025 10:28 AM EDT [facility] MCHC 32.6 32.0 - 37.0 g/dL LAB [facility]OLOGY [facility] RDW 13.9 11.0 - 15.0 % LAB HEMETOLOGY METHOD 03/28/2025 10:28 AM EDT [facility] Platelets 233 130 - 400 K/mcL LAB HEMETOLOGY METHOD 03/28/2025 10:28 AM EDT [facility] MPV 9.7 7.0 - 11.0 FL LAB HEMETOLOGY METHOD 03/28/2025 10:28 AM EDT [facility] NRBC 0.0 <1.0 % LAB HEMETOLOGY METHOD 03/28/2025 10:28 AM EDT [facility] NRBC Absolute 0.00 <0.10 K/mcL LAB HEMETOLOGY METHOD 03/28/2025 10:28 AM EDT [facility] Blood Venous blood specimen / Unknown Venipuncture / Unknown 03/28/2025 8:54 AM EDT 03/28/2025 8:54 AM EDT us No HUNT LAB BLOOD ORDERABLES Final Re sult Performing Organization Address City/[facility]/ZIP Co de Phone Number [facility] [address] [place] [address], [place] [phone] * Thyroid stimulating hormone (03/28/2025 8:54 AM EDT) [facility] Signature TSH 0.61 0.40 - 4.00 mcIU/mL LAB CHEMISTRY METHOD 03/28/2025 1:48 PM EDT [facility] Blood Venous blood specimen / Unknown Venipuncture / Unknown 03/28/2025 8:54 AM EDT 03/28/2025 8:54 AM EDT us No HUNT LAB BLOOD ORDERABLES Final Re sult [facility] [address] [place] [address], [place] [phone] * Comprehensive metabolic panel (03/28/2025 8:54 AM EDT) [facility] Signature Sodium 139 133 - 145 mmol/L LAB CHEMISTRY METHOD 03/28/2025 1:06 PM [facility] Potassium 4.5 3.5 - 5.5 mmol/L LAB CHEMISTRY METHOD 03/28/2025 1:06 PM [facility] Chloride 106 96 - 110 mmol/L LAB CHEMISTRY METHOD 03/28/2025 1:06 PM [facility] CO2 27 21 - 32 mmol/L LAB CHEMISTRY METHOD 03/28/2025 1:06 PM [facility] Anion Gap 6 3 - 11 LAB CHEMISTRY METHOD 03/28/2025 1:06 PM [facility] Glucose 98 70 - 100 mg/dL LAB CHEMISTRY METHOD 03/28/2025 1:06 PM [facility] BUN 22 5 - 25 mg/dL LAB CHEMISTRY METHOD 03/28/2025 1:06 PM [facility] Creatinine 0.82 0.50 - 1.10 mg/dL LAB CHEMISTRY METHOD 03/28/2025 1:06 PM [facility] eGFR 74 >=60 mL/min/1. 73m2 LAB CHEMISTRY METHOD 03/28/2025 1:06 PM [facility] Comment:Calculation based on the Chronic Kidney Disease Epidemiology Collaboration (CKD-EPI) equation refit without adjustment for race. BUN/Creatinine Ratio 26.8 LAB CHEMISTRY METHOD 03/28/2025 1:06 PM [facility] Calcium 10.1 8.5 - 10.5 mg/dL LAB CHEMISTRY METHOD 03/28/2025 1:06 PM [facility] AST (SGOT) 19 10 - 42 unit/L LAB CHEMISTRY METHOD 03/28/2025 1:06 PM [facility] ALT (SGPT) 24 10 - 60 unit/L LAB CHEMISTRY METHOD 03/28/2025 1:06 PM [facility] Alkaline Phosphatase 112 42 - 121 unit/L LAB CHEMISTRY METHOD 03/28/2025 1:06 PM EDT [facility] Total Protein 7.5 6.0 - 8.0 g/dL LAB CHEMISTRY METHOD 03/28/2025 1:06 PM EDT [facility] Albumin 4.2 3.2 - 5.0 g/dL LAB CHEMISTRY METHOD 03/28/2025 1:06 PM EDT [facility] Total Bilirubin 0.4 0.0 - 1.4 mg/dL LAB CHEMISTRY METHOD 03/28/2025 1:06 PM EDT [facility] Blood Venous blood specimen / Unknown Venipuncture / Unknown 03/28/2025 8:54 AM EDT 03/28/2025 8:54 AM EDT us No HUNT LAB BLOOD ORDERABLES Final Re sult [facility] [address] [place] [address], [place] [phone] * MG Mammo Digital Screening w Shayne bilat (08/15/2024 10:30 AM EST) Anatomical Region Laterality Modality Breast Bilateral Mammography 08/15/2024 11:4 6 AM EST Impressions 08/15/2024 11:52 AM EST Stable mammographic appearance of the breasts. No evidence of malignancy is seen. A negative mammogram in the presence of a clinically suspicious palpable abnormality does not preclude the possibility of malignancy or alter the indications for biopsy. BI-RADS: 2-Benign RECOMMENDATION(S): 1: Routine screening mammogram BILATERAL in 1 year. Mammo Location: [facility], [address] [place] [address], [phone], . -------- FINAL REPORT -------- Dictated By: Cathleen Mcginnis Dictated Date: 08/15/2024 11:46 ET Assigned Physician: Cathleen Mcginnis Reviewed and Electronically Signed By: Cathleen Mcginnis Signed Date: 08/15/2024 11:52 ET Workstation ID: [id number] Transcribed By: Self Edit Transcribed Date: 08/15/2024 11:46 ET Narrative 08/15/2024 11:52 AM EST EXAM: MAMMO DIGITAL SCREENING W SHAYNE BILAT EXAM DATE: 08/15/2024 10:20 AM HISTORY: Breast cancer screen, avg risk, asymptomatic (Age => 40y) COMPARISON: Mammograms dating back to 06/18/2020 with most recent of 08/05/2023. TECHNIQUE: Bilateral digital breast tomosynthesis was performed in the CC and MLO projections. Computer aided detection with [employer] AI 3D 3.1 was employed. TISSUE DENSITY: C. The breasts are heterogeneously dense. FINDINGS: No suspicious masses, grouped microcalcifications, or areas of architectural distortion are seen. The skin and vascularity are unremarkable. There is a biopsy clip in the central right breast. Procedure Note Cathleen Mcginnis MD - 08/15/2024 EXAM: MAMMO DIGITAL SCREENING W SHAYNE BILAT EXAM DATE: 08/15/2024 10:20 AM HISTORY: Breast cancer screen, avg risk, asymptomatic (Age => 40y) COMPARISON: Mammograms dating back to 06/18/2020 with most recent of08/05/2023. TECHNIQUE: Bilateral digital breast tomosynthesis was performed in the [employer] MLO projections. Computer aided detection with iCAsellpoints AI 3D 3.1was employed. TISSUE DENSITY: C. The breasts are heterogeneously dense. FINDINGS: No suspicious masses, grouped microcalcifications, or areas ofarchitectural distortion are seen. The skin and vascularity areunremarkable. There is a biopsy clip in the central right breast. IMPRESSION: Stable mammographic appearance of the breasts. No evidence of malignancyis seen. A negative mammogram in the presence of a clinically suspicious palpableabnormality does not preclude the possibility of malignancy or alter theindications for biopsy. BI-RADS: 2-Benign RECOMMENDATION(S): 1: Routine screening mammogram BILATERAL in 1 year. Mammo Location: [facility], [address] [place] [address], [id number], . -------- FINAL REPORT -------- Dictated By: Cathleen Mcginnis Dictated Date: 08/15/2024 11:46 ET Assigned Physician: Cathleen Mcginnis Reviewed and Electronically Signed By: Cathleen Mcginnis Signed Date: 08/15/2024 11:52 ET Workstation ID: [id number] Transcribed By: Self Edit Transcribed Date: 08/15/2024 11:46 ET Megha Miller MD IMG BI PROCEDURES Final Result from Last 3 Months or Most Recently Relevant to Health Maintenance Insurance MEDICARE [facility] Advance Directives Documents on File Type Date Recorded Patient Senior Data Analyst Expl anation Advance Directives and Living Will 03/28/2025 8:34 AM Jamari Gonzalez & Lucinda Gonzalez & Gi Gonzalez Care Teams Tail Board Worker Relationship Specialty Start Date End Date Megha Miller MD [address] [place] [address] [facility] - General 07/22/04
--- OUTSIDE RECORDS SUMMARY | 2025-06-14 07:29 | XMS_ITS | Encounter Summary ---
Author Organization [facility] Address [address] [place] [address] Care Team Providers Care Architect Name Role Phone Megha Miller MD Primary Care Provider [phone] Encounter Details Date Type Department Care Team Description 05/12/2023 Technician Biological Health Report Medical Records [address] [place] [address] Josy Novak MD Social History Tobacco Use Types Packs/Day Years [...] on filedocumented in this encounter Care Teams Architect Relationship Specialty Start Date End Date Megha Miller MD [address] [place], [place] [id number] PCP - General 04/06/06 documented as of this encounter
--- OUTSIDE RECORDS SUMMARY | 2025-06-14 07:29 | XMS_ITS | Encounter Summary ---
Author Organization [employer] [facility] Address [address] [place] [address] Care Team Providers Care Lens Assistant Name Role Phone Megha Miller MD Primary Care Provider [phone] Encounter Details Date Type Department Care Team Description 04/29/2016 Business Doc Medical Records [address] [place] [address] Abstract, Provider Social History Tobacco Use Types [...] on filedocumented in this encounter Care Teams Lens Assistant Relationship Specialty Start Date End Date Megha Miller MD [address] [facility], [place] [id number] PCP - General 04/06/06 documented as of this encounter
--- OUTSIDE RECORDS SUMMARY | 2025-06-14 07:30 | XMS_ITS | Encounter Summary ---
Author Organization [employer] [facility] Address [address] [place] [address] Care Team Providers Care Home Improvement Advisor Name Role Phone Megha Miller MD Primary Care Provider [phone] Encounter Details Date Type Department Care Team Description 11/02/2011 SCAN Medical Records [address] [place] [address] Abstract, Provider Social History Tobacco Use Types [...] on filedocumented in this encounter Care Teams Home Improvement Advisor Relationship Specialty Start Date End Date Megha Miller MD [address] [place], [place] [phone] PCP - General 04/06/06 documented as of this encounter
--- OUTSIDE RECORDS SUMMARY | 2025-06-14 07:30 | XMS_ITS | Encounter Summary ---
Author Organization [employer] [facility] Address [address] [place] [address] Care Team Providers Care Tap Builder Name Role Phone Megha Miller MD Primary Care Provider [phone] Encounter Details Date Type Department Care Team Description 07/23/2021 Business Doc Medical Records [address] [place] [id number] Abstract, Provider Social History Tobacco Use Types [...] Exposure Response Date Recorded In the last month, have you been in contact with someone who was confirmed or suspected to have Coronavirus / COVID-19? No / Unsure 07/18/2021 3:43 PM EDT documented as of this encounter Plan of Treatment Not on file documented as of this encounter Visit Diagnoses Not on filedocumented in this encounter Care Teams Tap Builder Relationship Specialty Start Date End Date Megha Miller MD [address] [place], [place] [phone] PCP - General 04/06/06 documented as of this encounter
--- OUTSIDE RECORDS SUMMARY | 2025-06-14 07:30 | XMS_ITS | Encounter Summary ---
Author Organization [facility] Address [address] [place] [address] Care Team Providers Care Glycerin Operator Name Role Phone Megha Miller MD Primary Care Provider [phone] Reason for Visit * Reason Onset Date Comments Abnormal Mammogram 10/12/2014 Encounter Details Date Type Department Care Team Description 10/12/2014 Telephone Radiology - [address] [phone] Radiology, Authorizing Abnormal Mammogram Social History Tobacco Use Types Packs/Day Years [...] encounter Miscellaneous Notes * Telephone Encounter - Foreign Bee - 10/19/2014 9:56 AM EST Exam completed l.m. * Telephone Encounter - Foreign Bee - 10/12/2014 11:09 AM EST Pt scheduled for add views l.m . documented in this encounter Plan of Treatment Not on file documented as of this encounter Visit Diagnoses Not on filedocumented in this encounter Care Teams Glycerin Operator Relationship Specialty Start Date End Date Megha Miller MD [address] [place] [id number] PCP - General 04/06/06 documented as of this encounter
--- OUTSIDE RECORDS SUMMARY | 2025-06-14 07:30 | XMS_ITS | Encounter Summary ---
Author Organization [employer] [facility] Address [address] [place] [address] Care Team Providers Care Road Equipment Operator Name Role Phone Megha Miller MD Primary Care Provider [phone] Encounter Details Date Type Department Care Team Description 10/12/2014 Business Doc Medical Records [address] [place] [address] Abstract, Provider Social History Tobacco Use Types [...] on filedocumented in this encounter Care Teams Road Equipment Operator Relationship Specialty Start Date End Date Megha Miller MD [address] [place], [place] [phone] PCP - General 04/06/06 documented as of this encounter
--- OUTSIDE RECORDS SUMMARY | 2025-06-14 07:30 | XMS_ITS | Encounter Summary ---
Author Organization [facility] Address [address] [place] [address] Care Team Providers Care Activated Sludge Operator Name Role Phone Megha Miller MD Primary Care Provider [phone] Encounter Details Date Type Department Care Team Description 06/21/2020 Business Doc Medical Records [address] [place] [address] Abstract, Provider Social History Tobacco Use Types [...] have Coronavirus / COVID-19? No / Unsure 06/18/2020 3:40 PM EDT documented as of this encounter Plan of Treatment Not on file documented as of this encounter Visit Diagnoses Not on filedocumented in this encounter Care Teams Activated Sludge Operator Relationship Specialty Start Date End Date Megha Miller MD [address] [place] [address] PCP - General 04/06/06 documented as of this encounter
== END 2025-06-14 08:59 | disposition home or self-care (01) ==
LOC: HO.HUSH 07:26
PROVIDERS: PCP Internal Medicine; Visit Provider Urology
DX: N20.0 Calculus of kidney (principal); R82.994 Hypercalciuria
CPT/HCPCS: 99214; G2211

== ENCOUNTER 2025-06-28 14:46 | Outpatient (AMB) | payer MEDICARE, OTHER, SELFPAY ==
[2025-06-28 14:48] VITALS: BP 156/88; PULSE 116; O2SAT 97; BMI 34.7
--- NOTE | 2025-06-28 14:48 | HO.NEPHOV_ITS ---
Vital Signs 06/28/25 14:48 Height 5 ft 3 in Weight 196 lb BMI 34.7 BP 156/88 H Blood Pressure Location Rt brachial Position Sitting Pulse 116 H Pulse Source Pulse Oximeter Pulse Oximetry (%) 97 Oxygen Delivery Method Room Air Intake Visit Reasons: INP: Calculus of kidney, Hypercalciuria,confirmed Resident Care Coordinator Required: No Accompanied by: Self / Same As Patient Allergies Sulfa (Sulfonamide Antibiotics) Allergy (Verified 06/28/25 14:50) Swelling Medication List - Last Reconciled 06/28/25 by Ye Musa MD levothyroxine 50 mcg PO DAILY simvastatin 20 mg PO DAILY HPI Comments Details: Kaila is a pleasant 75-year-old woman with a history of nephrolithiasis. She was on calcium supplementation about a year ago. She had mild hypercalciuria. Calcium supplementation was discontinued. The repeat urine calcium excretion was in normal range. However she has been diagnosed with osteopenia and calcium supplementation has been recommended. She is here for further evaluation. History of left ureteral stone with moderate hydronephrosis status post lithotripsy in 2023 History of hypothyroidism [facility] Surgical History H/O lithotripsy History of tubal ligation Social History Are you a primary skin care specialist to a significant other at home: No Do you presently have visiting nurse or other home services: No Patient Tobacco Use Status: Never used Tobacco Review of Systems Const Denies fever(s) and Denies weight loss Card Denies chest pain Resp Denies cough and Denies hemoptysis GI Denies abdominal pain, Denies diarrhea and Denies nausea Musc Denies back pain Neuro Denies focal weakness Physical Exam Vital Signs: Last Vital Signs Pulse 116 H 06/28/25 14:48 BP 156/88 H 06/28/25 14:48 Pulse Ox 97 06/28/25 14:48 Oxygen Delivery Method Room Air 06/28/25 14:48 BMI result Body Mass Index 34.7 Comfortable Neck supple no JVD. Lungs entry equal no rales. Heart S1-S2 heard no gallop or rub. Abdomen soft nontender. Neuro alert awake oriented. No asterixis. Extremities no edema. Results Reviewed Results Reviewed: Serum creatinine was 1.34 in June 2024. 24 hour urine collection was reviewed In July 2024 urine volume was 1300 cc with urine citrate excretion of 291 which was low. Calcium excretion was elevated at 322. In April of 2025 volume was again low at 14 60 mL. Urine calcium excretion was in the normal range of 167 and oxalate excretion was elevated at 39. Urine citrate excretion was low at 327. Nephrology Results: Renal US 10/09/24 Assessment & Plan Assessment & Plan (1) Hypercalciuria: Code(s): R82.994 - Hypercalciuria Category: Medical (2) Kidney calculi: Code(s): N20.0 - Calculus of kidney Category: Medical Plan 75-year-old woman with a mild hypercalcemia with hypercalciuria in the past. Repeat urine collection revealed normal calcium excretion. Serum calcium is not available. At present she had not on any calcium supplementation. It is unclear if this hypercalciuria was due to increase calcium intake or if she had hypercalciuria/hyperparathyroidism. Serum creatinine was 1.34 with a EGFR of about 33 mL/minute in 2023 however it is unclear if this was an acute finding or if this is her baseline. Recommendation Check basic metabolic panel Check serum calcium phosphorus and magnesium. Check intact PTH. In the meantime encouraged her to stand low-sodium diet Increase p.o. fluid intake to maintain urine output of 2 L. Returned to clinic after basic workup is completed Orders: Orders Magnesium Today N20.0 - Calculus of kidney Basic Metabolic Panel Today N20.0 - Calculus of kidney Parathyroid Hormone Intact Today N20.0 - Calculus of kidney Phosphorus Today N20.0 - Calculus of kidney Coding Level of Care Code New Pt Level 4 (47667) Diagnoses Hypercalciuria R82.994 Kidney calculi N20.0
== END 2025-06-28 15:11 | disposition home or self-care (01) ==
LOC: HO.HKA 14:46
PROVIDERS: PCP Internal Medicine; Referring Provider Urology; Visit Provider Internal Medicine Hypertension Specialist
DX: R82.994 Hypercalciuria (principal); N20.0 Calculus of kidney
CPT/HCPCS: 99204

== ENCOUNTER → 2025-06-28 14:46 | Outpatient (BNVA) | payer MEDICARE, OTHER, SELFPAY | PROVIDERS: PCP Internal Medicine; Referring Provider Urology; Visit Provider Internal Medicine Hypertension Specialist | DX: R82.994 Hypercalciuria (principal); N20.0 Calculus of kidney; E03.9 Hypothyroidism, unspecified | CPT/HCPCS: 99202 ==

== ENCOUNTER 2025-07-17 14:29 | Outpatient (AMB) | payer MEDICARE, OTHER, SELFPAY ==
[2025-07-17 14:37] VITALS: BP 162/82; PULSE 97; O2SAT 98; BMI 34.0
--- NOTE | 2025-07-17 14:37 | HO.NEPHOV ---
Vital Signs 07/17/25 14:37 Height 5 ft 3 in Weight 192 lb BMI 34.0 BP 162/82 H Blood Pressure Location Lt brachial Position Sitting Pulse 97 Pulse Source Pulse Oximeter Pulse Oximetry (%) 98 Oxygen Delivery Method Room Air Intake Visit Reasons: 3 wks f/u w/ labs Educational Programming Director Required: No Accompanied by: Self / Same As Patient Allergies Sulfa (Sulfonamide Antibiotics) Allergy (Verified 07/17/25 14:38) Swelling Medication List - Last Reconciled 07/17/25 by Ye Musa MD levothyroxine 50 mcg PO DAILY simvastatin 20 mg PO DAILY HPI Comments Details: Kaila is a pleasant 75-year-old woman with a history of nephrolithiasis. She was on calcium supplementation about a year ago. She had mild hypercalciuria. Calcium supplementation was discontinued. The repeat urine calcium excretion was in normal range. However she has been diagnosed with osteopenia and calcium supplementation has been recommended. She is here for further evaluation. History of left ureteral stone with moderate hydronephrosis status post lithotripsy in 2023 History of hypothyroidism 07/17/25 - The patient is a 75-year-old female - Follow-up for nephrolithiasis. - Normal kidney contour and calcium levels. ; lemon juice caused diarrhea. - Medications: Levothyroxine, Simvastatin. [facility] Surgical History H/O lithotripsy History of tubal ligation Social History Are you a primary childcare aide to a significant other at home: No Do you presently have visiting nurse or other home services: No Patient Tobacco Use Status: Never used Tobacco Physical Exam Vital Signs: Last Vital Signs Pulse 97 07/17/25 14:37 BP 162/82 H 07/17/25 14:37 Pulse Ox 98 07/17/25 14:37 Oxygen Delivery Method Room Air 07/17/25 14:37 BMI result Body Mass Index 34.0 Comfortable Neck supple no JVD. Lungs entry equal no rales. Heart S1-S2 heard no gallop or rub. Abdomen soft nontender. Neuro alert awake oriented. No asterixis. Extremities no edema. Results Reviewed Results Reviewed: Serum creatinine was 1.34 in June 2024. 24 hour urine collection was reviewed In July 2024 urine volume was 1300 cc with urine citrate excretion of 291 which was low. Calcium excretion was elevated at 322. In April of 2025 volume was again low at 14 60 mL. Urine calcium excretion was in the normal range of 167 and oxalate excretion was elevated at 39. Urine citrate excretion was low at 327. Nephrology Results: Renal US 10/09/24 Assessment & Plan Assessment & Plan (1) Hypercalciuria: Code(s): R82.994 - Hypercalciuria Category: Medical (2) Kidney calculi: Code(s): N20.0 - Calculus of kidney Category: Medical Plan 75-year-old woman with a mild hypercalcemia with hypercalciuria in the past. Repeat urine collection revealed normal calcium excretion. Serum calcium is normal At present she had not on any calcium supplementation. It is unclear if this hypercalciuria was due to increase calcium intake or if she had hypercalciuria/hyperparathyroidism. Serum creatinine was 1.34 with a EGFR of about 33 mL/minute in 2023 however it is unclear if this was an acute finding or if this is her baseline. PTH is 69 Serum Calcium is normal Recommendation In the meantime encouraged her to stay on low-sodium diet Increase p.o. fluid intake to maintain urine output of 2 L. Ok to take calcium supplement 600 mg BID ADD Potassium citrate to increase urinary citrate Medications: New potassium citrate ER 10 mEq PO BID 60 tabs 5RF Coding Level of Care Code Est Pt Level 4 (16895) Diagnoses Hypercalciuria R82.994 Kidney calculi N20.0
--- OUTSIDE RECORDS SUMMARY | 2025-07-17 18:54 | XMS_ITS | Clinical Summary ---
Author Organization [facility] [address] [place] [address] Address [address], [place] Phone Care Team Providers Care Conditioning Machine Operator Name Role Phone Megha Miller MD Primary Care Provider [phone] Allergies Active Allergy Reactions Criticality Noted Date [...] (BMI 30.0-34.9) 08/03/2006 Hyperlipidemia 05/03/2006 Hypothyroidism 04/13/2006 Immunizations Immunization Administration Dates Next Due Influenza Quadravalent, 0.5ml [...] subun it RSVpreF, 0.5mL, Preservative Free (Arexvy) 50yo and older 10/12/2023 Td Tetanus diptheria (Tdvax) [...] History Medical History Date Comments Morbid obesity (CMS/HCC V24, CMS/HCC V28) 08/03/2006 Pleural effusion 02/08/2017 Persistent, res [...] for your loved ones. For example, child care supervisor or elderly care for an older adult? [...] Date Recorded What is your living situation? Unrecognized valu e 03/22/2025 Comments Unknown Sex and Gender Information [...] Care Team (Late st Contact Info) Description 08/17/2025 8:00 AM EST Appointment Radiology Department [address] [phone] 09/28/2025 8:15 AM EST Office Visit Adult Medicine [address] [phone] Megha Miller MD [address] [place] [address] 03/28/2026 10:30 AM EDT Office Visit Adult Medicine [facility] [address], [place] [phone] No Powers PA [address], [place] Health Maintenance Due Date Last Done Comments Social Influencers of Health Screening 03/22/2026 03/22/2025 [...] Additional history exists Depression Screening Completed 03/22/2025 Influenza Vaccine Completed 06/20/2025, , 07/09/2023, Additional history exists HIB Vaccines Aged Out No longer eligi [...] Procedure Name Priority Date/Time Associated Diagnosis Comments MAGNESIUM Routine 07/02/2025 8:35 AM EDT Calculus of kidney BASIC METABOLIC PANEL Routine 07/02/2025 8:35 AM EDT Calculus of kidney PARATHYROID HORMONE INTACT Routine 07/02/2025 8:35 AM EDT Calculus of kidney PHOSPHORUS Routine 07/02/2025 8:35 AM EDT Calculus of kidney BD BONE DENSITY DXA AXIAL SKELETON Routine 04/02/2025 10:03 AM EDT Postmenopausal LIPID PANEL WITH REFLEX TO DIRECT LDL Routine 03/28/2025 8:54 AM EDT Mixed hyperlipidemia Hypothyroidism due to acquired atrophy of thyroid Obesity (BMI 30.0-34.9) MG MAMMO DIGITAL SCREENING W SHAYNE BILAT Routine 08/15/2024 10:30 AM EST Encounter for screening mammogram for breast cancer from Last 3 Months or Most Recently Relevant to Health Maintenance Results * Phosphorus (07/02/2025 8:35 AM EDT) Phosphorus 3.6 2.5 - 4.5 mg/dL LAB CHEMISTRY METHOD 07/02/2025 10:16 AM EDT [facility] Blood Venous blood specimen / Unknown Venipuncture / Unknown 07/02/2025 8:35 AM EDT 07/02/2025 8:35 AM EDT Ye Musa MD LAB BLOOD ORDERABL ES Final Result Performing Organization Address City/[facility]/ZIP Co de Phone Number [facility] [address] [place] [address], * Parathyroid hormone intact (07/02/2025 8:35 AM EDT) PTH 69.5 18.5 - 88.0 pcg/mL LAB CHEMISTRY METHOD 07/02/2025 11:59 AM EDT [facility] Blood Venous blood specimen / Unknown Venipuncture / Unknown 07/02/2025 8:35 AM EDT 07/02/2025 8:35 AM EDT Ye Musa MD LAB BLOOD ORDERABL ES Final Result Performing Organization Address [facility]/ZIP Co de Phone Number [facility] [address] [place] [address], * Magnesium (07/02/2025 8:35 AM EDT) Magnesium 2.2 1.9 - 2.6 mg/dL LAB CHEMISTRY METHOD 07/02/2025 10:16 AM EDT [facility] Blood Venous blood specimen / Unknown Venipuncture / Unknown 07/02/2025 8:35 AM EDT 07/02/2025 8:35 AM EDT Ye Musa MD LAB BLOOD ORDERABL ES Final Result Performing Organization Address City/[facility]/ZIP Co de Phone Number [facility] [address] [place] [address], [place] [phone] * (ABNORMAL) Basic metabolic panel (07/02/2025 8:35 AM EDT) Sodium 138 133 - 145 mmol/L LAB CHEMISTRY METHOD 07/02/2025 10:16 AM [facility] Potassium 4.1 3.5 - 5.5 mmol/L LAB CHEMISTRY METHOD 07/02/2025 10:16 AM [facility] Chloride 106 96 - 110 mmol/L LAB CHEMISTRY METHOD 07/02/2025 10:16 AM [facility] CO2 27 21 - 32 mmol/L LAB CHEMISTRY METHOD 07/02/2025 10:16 AM [facility] Anion Gap 5 3 - 11 LAB CHEMISTRY METHOD 07/02/2025 10:16 AM [facility] Glucose 102(H) 70 - 100 mg/dL LAB CHEMISTRY METHOD 07/02/2025 10:16 AM [facility] BUN 21 5 - 25 mg/dL LAB CHEMISTRY METHOD 07/02/2025 10:16 AM [facility] Creatinine 0.96 0.50 - 1.10 mg/dL LAB CHEMISTRY METHOD 07/02/2025 10:16 AM [facility] eGFR 61 >=60 mL/min/1. 73m2 LAB CHEMISTRY METHOD 07/02/2025 10:16 AM [facility] Comment:Calculation based on the Chronic Kidney Disease Epidemiology Collaboration (CKD-EPI) equation refit without adjustment for race. BUN/Creatinine Ratio 21.9 LAB CHEMISTRY METHOD 07/02/2025 10:16 AM [facility] Calcium 10.1 8.5 - 10.5 mg/dL LAB CHEMISTRY METHOD 07/02/2025 10:16 AM [facility] Blood Venous blood specimen / Unknown Venipuncture / Unknown 07/02/2025 8:35 AM EDT 07/02/2025 8:35 AM EDT us Ye Musa MD LAB BLOOD ORDERABL ES Final Result [facility] [address] [place] [address], * BD Bone Density DXA Axial Skeleton (04/02/2025 10:03 AM EDT) Anatomical Region Laterality Modality Wrist, Hip, L-spine Bone Densito metry 04/02/2025 3:19 PM EDT Impressions 04/02/2025 3:22 PM EDT Osteopenia by WHO criteria. This patient has an 11% risk of major osteoporotic fracture and a 2.2% risk of hip fracture over the next 10 years. (World Health Organization Fracture Risk Assessment) [facility] Department of Internal Medicine recommends using National [...] alternative screening schedule based on heber Harris., [facility] October 08, 2011 for patients with osteopenia [...] Signed Date: 04/02/2025 15:22 ET Workstation ID: [id number] Transcribed By: Self Edit Transcribed Date: 04/02/2025 [...] (World Health Organization Fracture Risk Assessment) [facility] Department of Internal Medicine recommendsusing National Osteoporosis [...] alternative screening schedule based on heber Harris., [facility] [place] for patients with osteopenia (based on [...] Signed Date: 04/02/2025 15:22 ET Workstation ID: [id number] Transcribed By: Self Edit Transcribed Date: 04/02/2025 15:19 ET No [facility] DXA PROCEDURES Final Resu lt * (ABNORMAL) Lipid panel with reflex to direct LDL (03/28/2025 8:54 AM EDT) [facility] Cholesterol 184 0 - 200 mg/dL LAB CHEMISTRY METHOD 03/28/2025 1:06 PM EDT [facility] Triglycerides 184(H) 0 - 150 mg/dL LAB CHEMISTRY METHOD 03/28/2025 1:06 PM EDT [facility] HDL 67 >=40 mg/dL LAB CHEMISTRY METHOD 03/28/2025 1:06 PM EDT [facility] LDL Calculated 80 0 - 100 mg/dL LAB CHEMISTRY METHOD 03/28/2025 1:06 PM EDT [facility] VLDL Cholesterol Amari 36.8 mg/dL LAB CHEMISTRY METHOD 03/28/2025 1:06 PM EDT [facility] Non HDL Chol. (LDL+VLDL) 117 <145 mg/dL LAB CHEMISTRY METHOD 03/28/2025 1:06 PM EDT [facility] Chol/HDL Ratio 2.7 0.0 - 4.4 LAB CHEMISTRY METHOD 03/28/2025 1:06 PM EDT [facility] Blood Venous blood specimen / Unknown Venipuncture / Unknown 03/28/2025 8:54 AM EDT 03/28/2025 8:54 AM EDT us No [facility] LAB BLOOD ORDERABLES Final Re sult [facility] [address] [place] [address], [place] [phone] * MG Mammo Digital Screening w Shayne [...] mammogram BILATERAL in 1 year. Mammo Location: [facility], [address] [place] [address], [id number], . -------- FINAL REPORT -------- Dictated By: Cathleen Mcginnis Dictated Date: 08/15/2024 11:46 ET Assigned Physician: Cathleen Mcginnis Reviewed and Electronically Signed By: Cathleen Mcginnis Signed Date: 08/15/2024 11:52 ET Workstation ID: [id number] Transcribed By: Self Edit Transcribed Date: 08/15/2024 [...] and MLO projections. Computer aided detection with [employer] AI 3D 3.1 was employed. TISSUE DENSITY: [...] CCand MLO projections. Computer aided detection with [employer] AI 3D 3.1was employed. TISSUE DENSITY: C. [...] mammogram BILATERAL in 1 year. Mammo Location: [facility], [address] [place] [address], [id number], . -------- FINAL REPORT -------- Dictated By: Cathleen Mcginnis Dictated Date: 08/15/2024 11:46 ET Assigned Physician: Cathleen Mcginnis Reviewed and Electronically Signed By: Cathleen Mcginnis Signed Date: 08/15/2024 11:52 ET Workstation ID: [id number] Transcribed By: Self Edit Transcribed Date: 08/15/2024 11:46 ET Megha Miller MD IMG BI PROCEDURES Final Result from Last 3 Months or Most Recently Relevant to Health Maintenance Insurance MEDICARE [facility] Advance Directives Documents on File Type Date Recorded Patient Management Nurse Rn Expl anation Advance Directives and Living Will 03/28/2025 8:34 AM Jamari Gonzalez & Lucinda Gonzalez & Gi Gonzalez Care Teams Conditioning Machine Operator Relationship Specialty Start Date End Date Megha Miller MD [address] [place] [phone] PCP - General 07/22/04
== END 2025-07-17 14:49 | disposition home or self-care (01) ==
LOC: HO.HKA 14:30
PROVIDERS: PCP Internal Medicine; Visit Provider Internal Medicine Hypertension Specialist
DX: R82.994 Hypercalciuria (principal); N20.0 Calculus of kidney
CPT/HCPCS: 99214

== ENCOUNTER → 2025-07-17 14:29 | Outpatient (BNVA) | payer MEDICARE, OTHER, SELFPAY | PROVIDERS: PCP Internal Medicine; Visit Provider Internal Medicine Hypertension Specialist | DX: R82.994 Hypercalciuria (principal); N20.0 Calculus of kidney | CPT/HCPCS: 99212 ==